=== PATIENT | male | born 1955 | race Caucasian/White ===

== ENCOUNTER 2018-03-20 22:56 | Emergency (ER) | payer BC ==
[2018-03-21 00:06] LABS: Granulocyte Absolute (ANC) 3.38 (1.4-6.9); Hemoglobin 12.8 gm/dl (12.5-18.0); Mean Cell Volume 90.5 fl (78-100); Mean Corpuscular Hemoglobin 29.7 pg (26-32); Mean Corpuscular Hgb Concent. 32.8 g/dl (32-36); Mean Platelet Volume 11.8 fl (6-9.5); Platelet Count 207 K/mm3 (150-450); Red Blood Count 4.31 M/mm3 (4.1-5.6); Red Cell Distribution Width 15.1 % (11.5-14.0); White Blood Count 6.2 K/mm3 (4.0-10.5)
[2018-03-21 00:31] LABS: INR 0.99 (0.8-3.0)
[2018-03-21 00:35] LABS: ALBUMIN 3.8 g/dL (3.5-5.0); ALKALINE PHOSPHATASE 55 U/L (38-126); ANION GAP 13.6 MEQ/L (5-15); BLOOD UREA NITROGEN 26 mg/dL (9-20); CHLORIDE 106 mmol/L (98-107); CK-Creatinine Phosphokinase 58 U/L (55-170); Calcium 9.3 mg/dL (8.4-10.2); Carbon Dioxide 25 mmol/L (22-30); Creatinine 1 0.87 mg/dL (0.66-1.25); Glucose 156 mg/dL (74-106); Potassium 3.5 mmol/L (3.5-5.1); SGOT/AST 25 U/L (17-59); SGPT/ALT 42 U/L (0-50); SODIUM 141 mmol/L (137-145); Total Protein 6.3 g/dL (6.3-8.2)
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
[2018-03-21 00:44] LABS: NT PRO BNP 62.7 pg/mL (0-900)
[2018-03-21] MEDS ORDERED: NORCO 5/325 MG PO ONE (00:51)
[2018-03-21] MEDS ORDERED: ULTRAM 50 MG PO ONE (00:53)
[2018-03-21] MEDS ORDERED: ULTRAM 50 MG ONE (00:59)
[2018-03-21] MEDS ORDERED: NORCO 5/325 MG ONE (01:00)
[2018-03-21 01:02] LABS: BAND 2 % (0.0-2.0); Eosinophil 7 % (0.00-3.0); Lymphocytes 36 % (24-44); Monocyte 11 % (0.0-12.0); Neutrophils 44 % (36.-66.); Platelet Estimate NORMAL (NORMAL); Total Cells Counted 100
[2018-03-21 01:04] LABS: ANISOCYTOSIS 1+; Poikilocytosis 1+
[2018-03-21 02:11] VITALS: BP 118/73
[2018-03-21] MEDS ORDERED: Hydromorphone 1 mg/ml Ampule IM ONE (02:48)
[2018-03-21 02:51] VITALS: O2SAT 97
[2018-03-21] MEDS ORDERED: DILAUDID 2 MG INJECTION ONE (02:53)
[2018-03-21] MEDS ORDERED: BENADRYL 25 MG CAPSULE PO ONE (03:21)
[2018-03-21] MEDS ORDERED: BENADRYL 25 MG CAPSULE ONE (03:27)
[2018-03-21 04:11] VITALS: PULSE 64
--- NOTE | 2018-03-21 08:48 | XRAY ---
Indication: Chest pain. Comparison: September 27, 2016. Portable chest again demonstrates chronic interstitial lung markings and scattered calcified granulomas. No focal infiltrate, consolidation, or large effusion. Heart is not enlarged for AP portable technique. Bony thorax intact again with mild osteopenia and degenerative changes. Impression: Stable nonacute chest with chronic features.
== END 2018-03-21 04:05 | disposition home or self-care (01) ==
LOC: ED 22:56
DX: R07.9 Chest pain, unspecified (principal); V89.2XXS Person injured in unspecified motor-vehicle accident, traffic, sequela; Z86.711 Personal history of pulmonary embolism; Z79.01 Long term (current) use of anticoagulants; Z79.899 Other long term (current) drug therapy; E11.9 Type 2 diabetes mellitus without complications; Z79.4 Long term (current) use of insulin
CPT/HCPCS: 36415; 71045; 80053; 82550; 83880; 84484; 85025; 85610; 93005; 96372; 99284; J1170; A9270-GY

== ENCOUNTER 2018-05-07 19:27 | Observation (INO) | payer BC ==
[2018-05-07] MEDS ORDERED: Sodium Chloride 0.9% 1000 ML 1,000 ML IV STA (20:41)
--- NOTE | 2018-05-07 20:41 | ERPHSYRPT ---
- History of Present Illness Time Seen by Provider: 05/07/18 20:37 Source: patient, family Exam Limitations: no limitations Patient Subjective Stated Complaint: pt is alert and oriented. pt is brought in by in wheelchair. pt states that he began having body aches, fever, sore throat since 05/01/18. pt states that he began having diarrhea and dry heaving on 05/02/18. pt no longer has a fever but is still having diarrhea and dry heaves. he has taken imodium and tylenol PM last dose of both at 1700 today. pt states that he is diabetic but has not checked his sugar or given himself any insulin since 05/01/18. Accucheck is 209. pt bowel sounds present x4. mucous membranes are slightly dry. skin is supple and wall. Triage Nursing Assessment: see above Physician History: The patient is a 62-year-old male with his complaining of frequent liquid diarrhea for one week with accompanying fever. He has muscle aches. He says he is very weak and has a headache as well. He denies abdominal pain. He called his primary medical doctor and is unable to be seen until Friday. He states he "can't go through another night like this". Every time he tries to eat or drink anything he has a lot of yellow brown diarrhea. He states he has lost 20 pounds in one week. Others in his family have also been ill but not as bad. His past medical history is significant for CAD, [place], cardiac stents, diverticulitis, hypertension, diabetes, COPD, pancreatitis, and high cholesterol. Timing/Duration: week(s) (1), gradual onset, worse Severity: severe Modifying Factors: Improves With: nothing Associated Symptoms: nausea, headaches, loss of appetite, weakness, No vomiting , No abdominal pain Allergies/Adverse Reactions: codeine Adverse Reaction (Mild, Verified 03/20/18 23:44) hyperactive/nausea morphine Adverse Reaction (Mild, Verified 03/20/18 23:44) Itching hydromorphone HCl [From Dilaudid] Adverse Reaction (Verified 09/27/16 06:01) ITCH found it caused his nose to itch and was then given with benadryl without problems Home Medications: Albuterol Common Canister [Proventil Common Canister] 2 puff IH UD PRN [History] Aspirin [Aspirin EC] 81 mg PO HS 04/17/13 [History] Atorvastatin Calcium [Lipitor] 40 mg PO HS 04/17/13 [History] Clopidogrel Bisulfate 75 mg [PLAVIX 75 MG Tablet] 75 mg PO DAILY 04/17/13 [History] Fenofibrate,Micronized 145 mg* [Tricor 145 MG] 145 mg PO HS 04/17/13 [History ] Magnesium Oxide 400 mg [Mag-Ox 400] 500 mg PO HS 04/17/13 [History] Metoprolol Succinate 25 mg Xl* [Toprol-Xl 25MG Tablets] 12.5 mg PO BID [History] Multivitamin [Men's Multi-Vitamin] 1 each PO DAILY 04/17/13 [History] Fexofenadine HCl [Saba] 180 mg PO DAILY 12/31/14 [History] Fluticasone Propionate [Flonase NASAL] 16 gm NS DAILY 12/31/14 [History] Fluticasone/Salmeterol [Advair 250-50 Diskus] 1 each IH DAILY 12/31/14 [History] Lisinopril/Hydrochlorothiazide [Lisinopril-Hctz 20-12.5 mg Tab] 1 each PO BID [History] Glipizide 5 mg [Glucotrol 5 MG] 5 mg PO BID 10/12/15 [History] Insulin Detemir [Levemir] 50 unit SQ DAILY 10/12/15 [History] Metformin HCl 500 mg [Glucophage 500 MG] 500 mg PO BID 10/12/15 [History] Vitamin E 400 Units [Vitamin E 400 UNIT SOFTGEL] 400 unit PO DAILY [History] PANTOPRAZOLE 40 mg Tablet [Protonix 40MG Tablet] 40 mg PO BID 09/27/16 [ History] Nitroglycerin 0.4 mg Tablet [Nitrostat 0.4 MG Tablet] 0.4 mg SL UD [History] Alprazolam 1 mg [Xanax 1 mg] 03/20/18 [History] Meloxicam 15 mg [Meloxicam 15 MG] 15 mg DAILY 03/20/18 [History] [place]-3 Fatty Acids/Fish Oil [Fish Oil 1,000 mg Capsule] 1 ea DAILY 03/20/18 [ History] Hx Tetanus, Diphtheria Vaccination/Date Given: No Hx Influenza Vaccination/Date Given: Yes Hx Pneumococcal Vaccination/Date Given: Yes (at least 5 years ago) Immunizations Up to Date: Yes - Review of Systems Constitutional: Fever, Weakness, Weight Loss Eyes: No Symptoms Ears, Nose, & Throat: No Symptoms Respiratory: No Cough, No Dyspnea Cardiac: No Chest Pain, No Edema, No Syncope Abdominal/Gastrointestinal: Nausea, Diarrhea, No Abdominal Pain, No Vomiting Genitourinary Symptoms: Other (decreased urine output.) Musculoskeletal: Myalgias Skin: No Rash Neurological: Headache Psychological: No Symptoms Endocrine: No Symptoms Hematologic/Lymphatic: No Symptoms Immunological/Allergic: No Symptoms All Other Systems: Reviewed and Negative - Past Medical History Pertinent Past Medical History: Yes Neurological History: Other ENT History: No Pertinent History Cardiac History: Aneurysm, Angina, Coronary Artery Disease, High Cholesterol, Hypertension, Myocardial Infarction ([place]) Respiratory History: Asthma, Pulmonary Embolism, Sleep Apnea Endocrine Medical History: Diabetes Type II Musculoskeletal History: Arthritis, Osteoarthritis, Other GI Medical History: Diverticulitis, GERD, Hemorrhoids, Pancreatitis, Polyps History: No Pertinent History Psycho-Social History: Anxiety Male Reproductive Disorders: No Pertinent History Other Medical History: cluster headaches, bursitis - Past Surgical History Past Surgical History: Yes Neuro Surgical History: No Pertinent History Cardiac: Cardiac Catheterization, Cardiac Stent Respiratory: No Pertinent History Gastrointestinal: No Pertinent History Genitourinary: No Pertinent History Musculoskeletal: Orthopedic Surgery Male Surgical History: Vasectomy Other Surgical History: fatty tumor removed from chest and back, surgery lower back disc surgery, sinus surgery - Social History Smoking Status: Current every day smoker How long have you smoked: occasional Exposure to second hand smoke: No Drug Use: none Patient Lives Alone: No - Nursing Vital Signs Nursing Vital Signs: Initial Vital Signs Temperature 98.6 F 05/07/18 19:28 Pulse Rate 86 05/07/18 19:28 Respiratory Rate 20 05/07/18 19:28 Blood Pressure 108/82 05/07/18 19:28 O2 Sat by Pulse Oximetry 96 08/02/18 19:28 Pain Scale Pain Intensity 3 - Physical Exam General Appearance: moderate distress Eye Exam: PERRL/EOMI, eyes nml inspection Ears, Nose, Throat Exam: normal ENT inspection, TMs normal, pharynx normal, moist mucous membranes Neck Exam: normal inspection, non-tender, supple, full range of motion Respiratory Exam: normal breath sounds, lungs clear, No respiratory distress Cardiovascular Exam: regular rate/rhythm, normal heart sounds, normal peripheral pulses Gastrointestinal/Abdomen Exam: soft, normal bowel sounds, No tenderness, No mass Rectal Exam: not done Back Exam: normal inspection, normal range of motion, No CVA tenderness, No vertebral tenderness Extremity Exam: normal inspection, normal range of motion, pelvis stable Neurologic Exam: alert, oriented x 3, cooperative, normal mood/affect, nml cerebellar function, nml station & gait, sensation nml, No motor deficits Skin Exam: normal color, warm, dry, No rash Lymphatic Exam: No adenopathy SpO2 Interpretation: normal SpO2: 94 Oxygen Delivery: Room Air - Course EKG Interpreted by Me: RATE, Sinus Rhythm, Left [place] Deviation, NORMAL INTERVALS , Right Bundle Branch Block, NORMAL ST-T - CT Exams Abdomen/Pelvis CT Interpretation: Discussed w/radiologist (per Dr Li), Tele-radiologist Report, diverticulitis (possible ascending colon), Other (colitis in cecum and ascending colon, appenidix at upper level of normal. no abcess.) Ordered Tests: Active Orders 24 hr Category Date Time Status ACCUCHECK [Accucheck] STAT Care 05/07/18 20:44 Active Clean Catch Urine Specimen STAT Care 05/07/18 20:41 Active EKG-ER Only STAT Care 05/07/18 20:41 Active IV Insertion STAT Care 05/07/18 20:41 Active ABDOMEN AND PELVIS W/0 CONTRAS [CT] Stat Exams 05/07/18 21:46 Taken BLOOD CULTURE Stat Lab 05/07/18 23:11 Ordered CBC W DIFF Stat Lab 05/07/18 21:08 Completed CMP Stat Lab 05/07/18 21:08 Completed LIPASE Stat Lab 05/07/18 21:08 Completed Lactic Acid Stat Lab 05/07/18 21:00 Completed Manual Differential NC Stat Lab 05/07/18 21:08 Completed TROPONIN Q3H Lab 05/07/18 21:08 Completed TROPONIN Q3H Lab 05/07/18 23:45 Ordered TROPONIN Q3H Lab 05/08/18 02:45 Ordered TROPONIN Q3H Lab 05/08/18 05:45 Ordered TROPONIN Q3H Lab 05/08/18 08:45 Ordered UA W/RFX UR CULTURE Stat Lab 05/07/18 20:42 Uncollected Medication Summary Generic Name Dose Route Start Last Admin Trade Name Soy PRN Reason Stop Dose Admin Potassium Chloride 20 meq in 100 mls @ 50 mls/hr 05/07/18 23:10 Potassium Chloride 20 Meq In Water 100ml IV 05/08/18 01:09 STAT ONE Ceftriaxone Sodium/Dextrose 1 g in 50 mls @ 100 mls/hr 05/07/18 23:11 Rocephin 1 Gm-D5w 50 Ml Bag IV 05/07/18 23:40 STAT STA Discontinued Medications Generic Name Dose Route Start Last Admin Trade Name Kelvinq PRN Reason Stop Dose Admin Sodium Chloride 1,000 mls @ 999 mls/hr 05/07/18 20:41 Sodium Chloride 0.9% 1000 Ml IV 05/07/18 21:41 .Q1H1M STA Potassium Chloride 40 meq 05/07/18 23:09 Klor Con 10 Meq PO 05/07/18 23:10 STAT ONE Lab/Rad Data: Laboratory Result Diagrams 05/07/18 21:08 05/07/18 21:08 Laboratory Results 05/07/18 05/07/18 05/07/18 Range/Units 21:08 21:08 21:08 WBC 8.5 (4.0-10.5) K/mm3 RBC 4.87 (4.1-5.6) M/mm3 Hgb 14.3 (12.5-18.0) gm/dl Hct 41.4 L (42-50) % MCV 85.0 (78-100) fl MCH 29.4 (26-32) pg MCHC 34.5 (32-36) g/dl RDW 15.6 H (11.5-14.0) % Plt Count 262 (150-450) K/mm3 MPV 11.6 H (6-9.5) fl Absolute Granulocytes 5.00 (1.4-6.9) Segmented Neutrophils 35 L (36.-66.) % Band Neutrophils 18 H (0.0-2.0) % Lymphocytes (Manual) 26 (24-44) % Monocytes (Manual) 12 (0.0-12.0) % Eosinophils (Manual) 2 (0.00-3.0) % Metamyelocytes 5 % Myelocytes 1 % Atypical Lymphocytes 1 % Toxic Granulation 2+ Dohle Bodies 2+ Platelet Estimate NORMAL (NORMAL) RBC Morphology NORMAL Sodium 132 L (137-145) mmol/L Potassium 2.8 L* (3.5-5.1) mmol/L Chloride 93 L (98-107) mmol/L Carbon Dioxide 26 (22-30) mmol/L Anion Gap 15.8 H (5-15) MEQ/L BUN 23 H (9-20) mg/dL Creatinine 0.87 (0.66-1.25) mg/dL Estimated GFR > 60.0 ML/MIN Glucose 156 H (74-106) mg/dL Lactic Acid (0.4-2.0) Calcium 9.0 (8.4-10.2) mg/dL Total Bilirubin 0.40 (0.2-1.3) mg/dL AST 42 (17-59) U/L ALT 56 H (0-50) U/L Alkaline Phosphatase 60 (38-126) U/L Troponin I < 0.012 (0.000-0.034) ng/mL Serum Total Protein 6.8 (6.3-8.2) g/dL Albumin 3.9 (3.5-5.0) g/dL Lipase 24 (23-300) U/L 05/07/18 Range/Units 21:00 WBC (4.0-10.5) K/mm3 RBC (4.1-5.6) M/mm3 Hgb (12.5-18.0) gm/dl Hct (42-50) % MCV (78-100) fl MCH (26-32) pg MCHC (32-36) g/dl RDW (11.5-14.0) % Plt Count (150-450) K/mm3 MPV (6-9.5) fl Absolute Granulocytes (1.4-6.9) Segmented Neutrophils (36.-66.) % Band Neutrophils (0.0-2.0) % Lymphocytes (Manual) (24-44) % Monocytes (Manual) (0.0-12.0) % Eosinophils (Manual) (0.00-3.0) % Metamyelocytes % Myelocytes % Atypical Lymphocytes % Toxic Granulation Dohle Bodies Platelet Estimate (NORMAL) RBC Morphology Sodium (137-145) mmol/L Potassium (3.5-5.1) mmol/L Chloride (98-107) mmol/L Carbon Dioxide (22-30) mmol/L Anion Gap (5-15) MEQ/L BUN (9-20) mg/dL Creatinine (0.66-1.25) mg/dL Estimated GFR ML/MIN Glucose (74-106) mg/dL Lactic Acid 1.8 (0.4-2.0) Calcium (8.4-10.2) mg/dL Total Bilirubin (0.2-1.3) mg/dL AST (17-59) U/L ALT (0-50) U/L Alkaline Phosphatase (38-126) U/L Troponin I (0.000-0.034) ng/mL Serum Total Protein (6.3-8.2) g/dL Albumin (3.5-5.0) g/dL Lipase (23-300) U/L - Progress Progress: unchanged Discussed with : Luis Will see patient in: hospital (observation) Counseled pt/family regarding: lab results, diagnosis, rad results - Departure Time of Disposition: 23:37 Departure Disposition: Observation (per Dr Smith) Clinical Impression: Diarrhea, Hypokalemia, Colitis Condition: Stable Critical Care Time: No Referrals: VIVEK SMITH MD [Primary Care Provider] -
[2018-05-07 21:11] LABS: Hematocrit 41.4 % (42-50); Hemoglobin 14.3 gm/dl (12.5-18.0); Mean Corpuscular Hemoglobin 29.4 pg (26-32); Mean Corpuscular Hgb Concent. 34.5 g/dl (32-36); Mean Platelet Volume 11.6 fl (6-9.5); Platelet Count 262 K/mm3 (150-450); Red Blood Count 4.87 M/mm3 (4.1-5.6); Red Cell Distribution Width 15.6 % (11.5-14.0); White Blood Count 8.5 K/mm3 (4.0-10.5)
[2018-05-07 21:26] LABS: ALBUMIN 3.9 g/dL (3.5-5.0); ALKALINE PHOSPHATASE 60 U/L (38-126); ANION GAP 15.8 MEQ/L (5-15); BLOOD UREA NITROGEN 23 mg/dL (9-20); CHLORIDE 93 mmol/L (98-107); Carbon Dioxide 26 mmol/L (22-30); Creatinine 1 0.87 mg/dL (0.66-1.25); Glucose 156 mg/dL (74-106); LIPASE 24 U/L (23-300); SGOT/AST 42 U/L (17-59); SGPT/ALT 56 U/L (0-50); SODIUM 132 mmol/L (137-145); Total Protein 6.8 g/dL (6.3-8.2)
[2018-05-07 21:30] LABS: Potassium 2.8 mmol/L (3.5-5.1)
[2018-05-07 21:41] LABS: ATYPICAL LYMPHS 1 %; BAND 18 % (0.0-2.0); Eosinophil 2 % (0.00-3.0); Lymphocytes 26 % (24-44); Metamyelocyte 5 %; Monocyte 12 % (0.0-12.0); Myelocyte 1 %; Neutrophils 35 % (36.-66.); Total Cells Counted 100
[2018-05-07 21:42] LABS: Dohle Bodies 2+; Platelet Estimate NORMAL (NORMAL); Toxic Granulation 2+
[2018-05-07] MEDS ORDERED: Xylocaine-Mpf 2% 5 Ml Vial IJ ONE (23:00)
[2018-05-07] MEDS ORDERED: Klor Con 10 MEQ PO ONE ×3 (23:09→23:34)
[2018-05-07] MEDS ORDERED: POTASSIUM CHLORIDE 20 mEq IN WATER 100ML 20 MEQ/100 ML BAG IV ONE (23:10)
[2018-05-07] MEDS ORDERED: ROCEPHIN 1 Gm-D5w 50 ml Bag** 1 G/50 ML IVPB IV STA (23:11)
[2018-05-07] MEDS ORDERED: ROCEPHIN 1 Gm-D5w 50 ml Bag** 1 G/50 ML IVPB IV ONE (23:33)
[2018-05-07] MEDS ORDERED: Sodium Chloride 0.9% 1000 ML 2,000 ML ONE (23:33)
[2018-05-08 00:05] LABS: Appearance CLEAR (CLEAR); Bilirubin NEGATIVE (NEGATIVE); Blood NEGATIVE Ery/ul (0-5); Glucose NEGATIVE (NEGATIVE); Ketones NEGATIVE (NEGATIVE); Leukocyte Esterase NEGATIVE (NEGATIVE); Nitrite NEGATIVE (NEGATIVE); Protein,Urine Dip NEGATIVE (Negative); Urobilinogen NORMAL mg/dL (0-1)
[2018-05-08] MEDS ORDERED: POTASSIUM CHLORIDE 20 mEq IN WATER 100ML 100 ML IV ONE (00:23)
[2018-05-08] MEDS ORDERED: Zofran 4 MG/2 ML VIAL IV PRN (00:39)
[2018-05-08] MEDS ORDERED: Sodium Chloride 0.9% 1000 ML 1,000 ML IV SCH (00:39)
[2018-05-08] MEDS: FLAGYL 500 MG IVPB 500 MG/100 ML BAG IV SCH ×5 (01:16→23:56)
[2018-05-08] MEDS: TYLENOL 325 MG PO PRN ×4 (01:17→19:34)
[2018-05-08] MEDS ORDERED: PROVENTIL COMMON CANISTER IH PRN (01:27)
[2018-05-08 05:55] LABS: Hematocrit 37.4 % (42-50); Hemoglobin 12.6 gm/dl (12.5-18.0); Mean Cell Volume 85.8 fl (78-100); Mean Corpuscular Hemoglobin 28.9 pg (26-32); Mean Corpuscular Hgb Concent. 33.7 g/dl (32-36); Mean Platelet Volume 11.1 fl (6-9.5); Platelet Count 243 K/mm3 (150-450); Red Blood Count 4.36 M/mm3 (4.1-5.6); Red Cell Distribution Width 15.7 % (11.5-14.0); White Blood Count 8.3 K/mm3 (4.0-10.5)
[2018-05-08 06:40] LABS: ANION GAP 12.5 MEQ/L (5-15); BLOOD UREA NITROGEN 17 mg/dL (9-20); CHLORIDE 101 mmol/L (98-107); Calcium 8.3 mg/dL (8.4-10.2); Carbon Dioxide 25 mmol/L (22-30); Creatinine 1 0.77 mg/dL (0.66-1.25); Glucose 110 mg/dL (74-106); Potassium 3.3 mmol/L (3.5-5.1); SODIUM 135 mmol/L (137-145)
[2018-05-08] MEDS: Advair Hfa 115/21 Common canister IH SCH ×2 (06:56→19:05)
[2018-05-08 07:00] LABS: ATYPICAL LYMPHS 3 %; BAND 3 % (0.0-2.0); Eosinophil 2 % (0.00-3.0); Lymphocytes 24 % (24-44); Monocyte 13 % (0.0-12.0); Neutrophils 55 % (36.-66.); Platelet Estimate NORMAL (NORMAL); Total Cells Counted 100; Toxic Granulation 1+
[2018-05-08] MEDS ORDERED: NovoLOG Insulin SQ PRN (08:09)
[2018-05-08] MEDS: Flonase NASAL NS SCH (09:20)
[2018-05-08] MEDS: hydroDIURIL 25 MG PO SCH (09:22)
[2018-05-08] MEDS: PLAVIX 75 MG Tablet PO SCH (09:23)
[2018-05-08] MEDS: Protonix 40MG Tablet PO SCH ×2 (09:24→20:49)
[2018-05-08] MEDS: Toprol-Xl 25MG Tablets PO SCH ×2 (09:25→20:52)
[2018-05-08] MEDS: Zestril 20 MG PO SCH (09:25)
[2018-05-08] MEDS: Sodium Chloride 0.9% W/ 20 mEq KCl/LITER 1,000 ML IV SCH ×2 (09:28→19:33)
[2018-05-08] MEDS ORDERED: NON-FORMULARY ITEM (Lisinopril/Hydrochlorothiazide [Lisinopril-Hctz 20-12.5 Mg Tab] 1 EACH PO SCH (10:00)
--- NOTE | 2018-05-08 10:23 | XRAY ---
Exam: CT of the abdomen and pelvis without IV contrast from 05/07/2018. CTDI: 23.68 Comparison: CT of the abdomen and pelvis with IV contrast from 10/02/2016. Indication: 62-year-old male with flu-like symptoms for one week, headache, nausea, diarrhea, and muscle aches, no history of prior abdominal surgery. Technique: Non-IV contrast axial images were obtained through the abdomen and pelvis. Reconstructed coronal and sagittal images were created and reviewed. No oral contrast was given. Findings: On the AP and lateral CT panelboard assembler images, the patient is noted to be morbidly obese with a protuberant abdomen. At the lung bases, the transverse heart size appears within normal limits. I believe there is mild three-vessel coronary artery vascular calcification. Some small granulomatous calcifications are seen within the infrahilar projections. Minimal atelectasis/scarring is seen at the anterior left lung base. There are a few small scattered tiny calcified granulomas within the lung bases. A tiny strand of linear atelectasis or fibrosis is seen at the posterior medial right lung base. No posterior pleural fluid is seen. The liver reveals some tiny scattered calcified granulomas within it. There is diffuse decreased hepatic attenuation consistent with steatosis. Assessment of the solid organs is limited without IV contrast. No definite intrahepatic biliary duct distention is seen. The gallbladder is distended and reveals no dense calcifications within it. Prior minimal free fluid adjacent to the liver in the right paracolic gutter is no longer seen. Spleen reveals a few small calcified granulomas. It is not enlarged. No splenic mass is seen. The pancreas appears unremarkable on the current study which is markedly improved as compared to 10/02/2016 when findings consistent with acute pancreatitis were seen. The prior large pseudocyst within the lesser sac on 10/02/2016 is no longer seen. The adrenal glands appear normal bilaterally. The kidneys are unremarkable size and reveal no calculi, gross evidence of mass, or hydronephrosis. Atherosclerotic vascular calcification is seen within the distal abdominal aorta. In addition, there is a 3.6 cm in width by 3.1 cm in AP depth saccular distal abdominal aortic aneurysm just above the aortic bifurcation representing no significant change. There is no evidence of rupture. Some atherosclerotic vascular calcification is seen within the iliac arteries and common femoral arteries. No abnormal retroperitoneal lymphadenopathy is seen. There is no free intraperitoneal air. No ventral abdominal hernia is seen. There is minimal protrusion of intraperitoneal fat into the base of the umbilicus on sagittal image #47 representing no change. The appendix is seen within the right lower quadrant and appears unremarkable. However, there appears to be some mild inflammatory stranding about the cecum and proximal ascending colon as compared to the prior study. Consider focal colitis. Assessment of wall thickening is difficult without IV or oral contrast. Significant diverticula within this projection are not seen. The remainder of the colon reveals some scattered stool. I also note mild diverticulosis within the distal descending colon and proximal sigmoid colon without evidence diverticulitis. No bowel obstruction is seen. The urinary bladder appears unremarkable. The seminal vesicles and prostate gland reveal minimal central prostate gland calcification. No free intraperitoneal fluid is seen. Pelvic lymph nodes are not enlarged. The skeleton reveals no acute fracture or aggressive bone lesion. Moderate degenerative disc disease is seen at L5-S1 with interspace narrowing, vacuum disc phenomena, and moderate anterior and posterior vertebral endplate spurring. Some facet joint arthropathy is seen at both L4-L5 and L5-S1. Prominent lateral osteophytes are seen within lower thoracic spine and the upper lumbar spine on the right. There is some subtle subarticular sclerosis along the upper anterior aspect of the right femoral head, best seen on the coronal images. This is unchanged from 10/02/2016 and 80 remote study from 04/26/2013. The possibility of very early osteonecrosis is not completely excluded. However, the hip joint spaces appear well-maintained bilaterally. Impression: 1. There is some mild inflammatory stranding and hazy pericolonic inflammatory changes about the cecum and proximal ascending colon without significant diverticula. This does not appear to be related to the appendix, the latter which appears unremarkable. Consider focal colitis. 2. Prior findings of acute pancreatitis on 10/02/2016 have completely resolved. 3. 3.6 cm x 3.1 cm distal abdominal aortic aneurysm without rupture just above the distal aortic bifurcation. This is essentially unchanged from 10/02/2016. 4. Diffuse hepatic steatosis and evidence of old healed granulomatous disease are seen. These findings are unchanged. 5. Mild distal descending colon and proximal sigmoid colon diverticulosis without evidence of acute diverticulitis. 5. Questionable early osteonecrosis of the upper anterior margin of the right femoral head. However, these findings are unchanged from 10/02/2016 and 04/26/2013. The hip joint spaces remain adequately maintained.
[2018-05-08 12:19] LABS: 027 TOX PROD PRESUMPTIVE NEGATIVE (NEGATIVE); TOXIGENIC C. DIFF ORG NEGATIVE (NEGATIVE)
[2018-05-08] MEDS: Cyclobenzaprine 10 MG PO SCH (20:49)
[2018-05-08] MEDS: Lantus Insulin SQ SCH (20:52)
[2018-05-08] MEDS: ECOTRIN 81 MG PO SCH (20:52)
[2018-05-08] MEDS: XANAX 1 MG PO PRN (20:52)
[2018-05-08] MEDS: ROCEPHIN 1 Gm-D5w 50 ml Bag** 1 G/50 ML IVPB IV SCH (20:59)
[2018-05-08] MEDS ORDERED: BENADRYL 25 MG CAPSULE PO PRN (21:40)
[2018-05-08] MEDS ORDERED: MORPHINE SULFATE 4 MG INJ IV PRN (21:44)
[2018-05-09] MEDS: FLAGYL 500 MG IVPB 500 MG/100 ML BAG IV SCH ×4 (05:21→23:10)
[2018-05-09 05:52] LABS: Granulocyte Absolute (ANC) 4.26 (1.4-6.9); Hematocrit 34.4 % (42-50); Hemoglobin 11.4 gm/dl (12.5-18.0); Mean Cell Volume 88.2 fl (78-100); Mean Corpuscular Hemoglobin 29.2 pg (26-32); Mean Corpuscular Hgb Concent. 33.1 g/dl (32-36); Mean Platelet Volume 11.2 fl (6-9.5); Platelet Count 230 K/mm3 (150-450); White Blood Count 6.7 K/mm3 (4.0-10.5)
[2018-05-09 06:17] LABS: ALBUMIN 2.9 g/dL (3.5-5.0); ALKALINE PHOSPHATASE 45 U/L (38-126); ANION GAP 10.6 MEQ/L (5-15); BLOOD UREA NITROGEN 8 mg/dL (9-20); CHLORIDE 106 mmol/L (98-107); Calcium 8.4 mg/dL (8.4-10.2); Carbon Dioxide 24 mmol/L (22-30); Creatinine 1 0.75 mg/dL (0.66-1.25); Glucose 102 mg/dL (74-106); Potassium 3.4 mmol/L (3.5-5.1); SGOT/AST 36 U/L (17-59); SGPT/ALT 52 U/L (0-50); SODIUM 137 mmol/L (137-145); Total Protein 5.5 g/dL (6.3-8.2)
[2018-05-09] MEDS: Advair Hfa 115/21 Common canister IH SCH ×2 (07:32→19:23)
[2018-05-09] MEDS: Sodium Chloride 0.9% W/ 20 mEq KCl/LITER 1,000 ML IV SCH ×2 (07:43→18:04)
[2018-05-09 09:05] LABS: BAND 5 % (0.0-2.0); Eosinophil 2 % (0.00-3.0); Lymphocytes 22 % (24-44); Monocyte 8 % (0.0-12.0); Neutrophils 63 % (36.-66.); Total Cells Counted 100
[2018-05-09 09:06] LABS: Platelet Estimate NORMAL (NORMAL)
[2018-05-09] MEDS: Protonix 40MG Tablet PO SCH ×2 (10:05→21:16)
[2018-05-09] MEDS: PLAVIX 75 MG Tablet PO SCH (10:05)
[2018-05-09] MEDS: Zestril 20 MG PO SCH (10:05)
[2018-05-09] MEDS: hydroDIURIL 25 MG PO SCH (10:05)
[2018-05-09] MEDS: Toprol-Xl 25MG Tablets PO SCH ×2 (10:05→21:16)
[2018-05-09] MEDS: Flonase NASAL NS SCH (11:05)
--- NOTE | 2018-05-09 11:55 | PCM.NOTE ---
Date and Time: 05/09/18 1152 Subjective Assessment: Pt feeling better, had some RLQ pain last night which resolvd with 1 dose of IV morphine (stated he had some itching with morphine, resolved with benadryl, so benadryl given with morphine an dpt w/o complaint). Last diarrhea 11 pm last night. Ramonita CLD but would like more. - Review of Systems Constitutional: No Fever Abdominal/Gastrointestinal: Abdominal Pain Objective Exam General Appearance: no apparent distress, obese Neurologic Exam: alert, oriented x 3, cooperative Skin Exam: normal color, warm, dry, No rash Neck Exam: normal inspection Respiratory Exam: normal breath sounds, lungs clear, No crackles/rales, No rhonchi, No wheezing Cardiovascular Exam: regular rate/rhythm, normal heart sounds, No murmur Gastrointestinal/Abdomen Exam: soft, normal bowel sounds, tenderness (RLQ, mild) , No mass, No guarding, No rebound Extremity Exam: normal inspection, No pedal edema, No swelling OBJECTIVE DATA Vital Signs: Vital Signs - 24 hr Temp Pulse Resp BP Pulse Ox 05/09/18 07:32 67 18 94 L 05/09/18 07:24 98.2 F 68 20 125/75 95 05/09/18 07:11 95 05/09/18 04:03 98.3 F 67 18 117/68 93 L 05/09/18 00:14 97.8 F 71 20 109/64 98 05/08/18 20:30 98.3 F 67 20 117/70 96 05/08/18 19:32 75 16 95 05/08/18 16:00 97.8 F 73 22 101/59 94 L 05/08/18 12:00 98.8 F 75 22 127/72 96 Pain Assessment - Last Documented Pain Intensity 0 Pain Scale Used 0-10 Pain Scale Intake and Output: Intake & Output 05/06/18 05/07/18 05/08/18 05/09/18 11:59 11:59 11:59 11:59 Intake Total 940 6656 Balance 940 6656 Weight 134.9 kg 136.5 kg Lab Results: Accuchecks Date 05/08/18 Date 05/08/18 Time 22:00 Time 16:30 Accucheck Value: 105 Lab Results-Last 24 Hours 08/03/18 08/04/18 08/04/18 Range/Units 06:00 05:05 05:05 WBC 6.7 (4.0-10.5) K/mm3 RBC 3.90 L (4.1-5.6) M/mm3 Hgb 11.4 L (12.5-18.0) gm/dl Hct 34.4 L (42-50) % MCV 88.2 (78-100) fl MCH 29.2 (26-32) pg MCHC 33.1 (32-36) g/dl RDW 16.0 H (11.5-14.0) % Plt Count 230 (150-450) K/mm3 MPV 11.2 H (6-9.5) fl Absolute Granulocytes 4.26 (1.4-6.9) Segmented Neutrophils 63 (36.-66.) % Band Neutrophils 5 H (0.0-2.0) % Lymphocytes (Manual) 22 L (24-44) % Monocytes (Manual) 8 (0.0-12.0) % Eosinophils (Manual) 2 (0.00-3.0) % Platelet Estimate NORMAL (NORMAL) RBC Morphology NORMAL Sodium 137 (137-145) mmol/L Potassium 3.4 L (3.5-5.1) mmol/L Chloride 106 (98-107) mmol/L Carbon Dioxide 24 (22-30) mmol/L Anion Gap 10.6 (5-15) MEQ/L BUN 8 L (9-20) mg/dL Creatinine 0.75 (0.66-1.25) mg/dL Estimated GFR > 60.0 ML/MIN Glucose 102 (74-106) mg/dL Calcium 8.4 (8.4-10.2) mg/dL Magnesium 1.8 (1.6-2.3) mg/dL Total Bilirubin 0.30 (0.2-1.3) mg/dL AST 36 (17-59) U/L ALT 52 H (0-50) U/L Alkaline Phosphatase 45 (38-126) U/L Serum Total Protein 5.5 L (6.3-8.2) g/dL Albumin 2.9 L (3.5-5.0) g/dL Stl C. diff Tox B Gene NEGATIVE (NEGATIVE) C.difficile [id number] PRESUMPTIVE NEGATIVE (NEGATIVE) Radiology Exams: Radiology Procedures Category Date Time Status ABDOMEN AND PELVIS W/0 CONTRAS [CT] Stat Exams 05/07/18 21:46 Completed Multi-Disciplinary Progress Notes: Multi-Disciplinary Progress Notes 05/08/18 19:30 Respiratory Note by Nelida Goldberg PT STATES HE WILL NOT WEAR THE [facility] CPAP UNIT TONIGHT. PT STATES HIS WILL BRING HIS FROM HOME TOMORROW. [facility] CPAP PULLED FROM ROOM. Initialized on 05/08/18 19:30 - END OF NOTE Assessment/Plan (1) Colitis Current Visit: Yes Status: Acute Onset Date: ~05/08/18 Assessment & Plan: On IV rocephin and flagyl, day #3 - doing much better, so will continue current regimen. Discussed sending pt home but would like to advance his diet first and ensure he is not going to increase diarrhea with increased diet. Code(s): K52.9 - NONINFECTIVE GASTROENTERITIS AND COLITIS, UNSPECIFIED (2) Dehydration Current Visit: Yes Status: Resolved Assessment & Plan: On IV fluids Code(s): E86.0 - DEHYDRATION (3) Diarrhea Current Visit: Yes Status: Acute Onset Date: ~05/08/18 Assessment & Plan: much improved. Code(s): R19.7 - DIARRHEA, UNSPECIFIED
[2018-05-09 12:25] LABS: Source: Feces
[2018-05-09] MEDS: Lantus Insulin SQ SCH (21:14)
[2018-05-09] MEDS: ROCEPHIN 1 Gm-D5w 50 ml Bag** 1 G/50 ML IVPB IV SCH (21:14)
[2018-05-09] MEDS: ECOTRIN 81 MG PO SCH (21:16)
[2018-05-09] MEDS: Cyclobenzaprine 10 MG PO SCH (21:16)
[2018-05-09] MEDS: XANAX 1 MG PO PRN (21:19)
[2018-05-10] MEDS: Sodium Chloride 0.9% W/ 20 mEq KCl/LITER 1,000 ML IV SCH (05:20)
[2018-05-10] MEDS: FLAGYL 500 MG IVPB 500 MG/100 ML BAG IV SCH ×2 (05:20→11:36)
[2018-05-10 06:02] LABS: ANION GAP 10.2 MEQ/L (5-15); BLOOD UREA NITROGEN 9 mg/dL (9-20); CHLORIDE 109 mmol/L (98-107); Calcium 8.7 mg/dL (8.4-10.2); Carbon Dioxide 24 mmol/L (22-30); Creatinine 1 0.73 mg/dL (0.66-1.25); Glucose 111 mg/dL (74-106); Hematocrit 33.4 % (42-50); Hemoglobin 11.1 gm/dl (12.5-18.0); Mean Cell Volume 88.8 fl (78-100); Mean Corpuscular Hemoglobin 29.5 pg (26-32); Mean Corpuscular Hgb Concent. 33.2 g/dl (32-36); Mean Platelet Volume 11.3 fl (6-9.5); Platelet Count 259 K/mm3 (150-450); Potassium 3.7 mmol/L (3.5-5.1); Red Blood Count 3.76 M/mm3 (4.1-5.6); Red Cell Distribution Width 16.2 % (11.5-14.0); SODIUM 139 mmol/L (137-145); White Blood Count 6.9 K/mm3 (4.0-10.5)
[2018-05-10] MEDS: Advair Hfa 115/21 Common canister IH SCH (07:52)
[2018-05-10] MEDS: PLAVIX 75 MG Tablet PO SCH (09:06)
[2018-05-10] MEDS: Toprol-Xl 25MG Tablets PO SCH (09:06)
[2018-05-10] MEDS: hydroDIURIL 25 MG PO SCH (09:06)
[2018-05-10] MEDS: Protonix 40MG Tablet PO SCH (09:06)
[2018-05-10] MEDS: Zestril 20 MG PO SCH (09:07)
[2018-05-10] MEDS: Flonase NASAL NS SCH (09:10)
[2018-05-10] MEDS ORDERED: ENOXAPARIN SODIUM SQ SCH (10:00)
--- NOTE | 2018-05-10 10:28 | PCM.DS ---
Discharge Summary Date of Admission: 05/08/18 00:33 Admitting Physician: VIVEK DE LA FUENTE Primary Care Provider: VIVEK DE LA FUENTE Allergies Allergies codeine Adverse Reaction (Mild, Verified 03/20/18 23:44) hyperactive/nausea morphine Adverse Reaction (Mild, Verified 03/20/18 23:44) Itching hydromorphone HCl [From Dilaudid] Adverse Reaction (Verified 09/27/16 06:01) ITCH found it caused his nose to itch and was then given with benadryl without problems Hospital Summary - Hospital Course Hospital Course: Pt admitted by Dr. De La Fuente for colitis, was having diarrhea. Feeling better after the first day on flagyl and rocephin but was still having some loose stools. Now has not had any stools overnight, keren bland diet, and feeling no pain. Would like to d/c to home. Will send pt home on flagyl and cefdinir. F/ u with Dr. De La Fuente in 1 wk. - Vitals & Intake/Output Vital Signs: Vital Signs Temperature 97.7 F 05/10/18 07:55 Pulse Rate 66 05/10/18 07:55 Respiratory Rate 18 05/10/18 07:55 Blood Pressure 110/65 05/10/18 07:55 O2 Sat by Pulse Oximetry 96 05/10/18 07:55 Intake & Output: Intake & Output 05/07/18 05/08/18 05/09/18 05/10/18 11:59 11:59 11:59 11:59 Intake Total 940 6656 4565 Output Total 700 Balance 940 6656 3865 Weight 134.9 kg 136.5 kg 137.5 kg - Lab Result Diagrams: 05/10/18 05:05 05/10/18 05:05 Lab Results-Last 24 Hrs: Accuchecks Accucheck Value: 129 Accucheck Value: 111 Accucheck Value: 116 Lab Results-Last 24 Hours 05/10/18 05/10/18 Range/Units 05:05 05:05 WBC 6.9 (4.0-10.5) K/mm3 RBC 3.76 L (4.1-5.6) M/mm3 Hgb 11.1 L (12.5-18.0) gm/dl Hct 33.4 L (42-50) % MCV 88.8 (78-100) fl MCH 29.5 (26-32) pg MCHC 33.2 (32-36) g/dl RDW 16.2 H (11.5-14.0) % Plt Count 259 (150-450) K/mm3 MPV 11.3 H (6-9.5) fl Sodium 139 (137-145) mmol/L Potassium 3.7 (3.5-5.1) mmol/L Chloride 109 H (98-107) mmol/L Carbon Dioxide 24 (22-30) mmol/L Anion Gap 10.2 (5-15) MEQ/L BUN 9 (9-20) mg/dL Creatinine 0.73 (0.66-1.25) mg/dL Estimated GFR > 60.0 ML/MIN Glucose 111 H (74-106) mg/dL Calcium 8.7 (8.4-10.2) mg/dL Micro Results-Entire Visit: Microbiology 05/07/18 23:45 Blood Culture - Preliminary Blood NO GROWTH TO DATE 05/07/18 20:40 Blood Culture - Preliminary Blood NO GROWTH TO DATE Accuchecks Accucheck Value: 129 Accucheck Value: 111 Accucheck Value: 116 - Procedures and Test Procedures and Tests throughout Hospitalization: Therapy Orders & Screens 05/08/18 01:27 Respiratory MDI PRN Comment: ALB MDI PRN Diagnosis: colitis 05/08/18 01:29 BiPap/CPAP ROUTINE Comment: Diagnosis: colitis Respiratory Therapy Assessment DAILY Comment: Diagnosis: colitis 05/08/18 01:46 RT Screen per Nursing Assess ONCE Comment: Protocol Order Physician Instructions: Greater than 3 points order RT Admission Screen Reason For Exam: Triggered on Admission Diagnosis: colitis Diagnosis: colitis Pneumonia: No Home O2: No Asthma: No CHF: No Home CPAP/BIPAP: Yes Home Nebs/MDI: Yes Total Points: 10 Smoking Cessation Education ONCE Comment: Diagnosis: colitis Smoking Status: Current every day smoker How long have you smoked: 50 years Have you smoked in the past 12 months: Yes Approximately how many cigarettes per day: 1 pack Do you dip or chew tobacco: No If,Former Smoker,when did you quit: 200805/08/18 07:00 Respiratory MDI BID Comment: PRABHAKAR 115/21 BID Diagnosis: colitis 05/09/18 19:51 BiPap/CPAP ROUTINE Comment: CPAP 10 WITH AUTOPAP FROM HOME Diagnosis: colitis Discharge Exam General Appearance: no apparent distress, alert, obese Neurologic Exam: oriented x 3, cooperative Skin Exam: normal color, warm, dry, No rash Ears, Nose, Throat Exam: moist mucous membranes Neck Exam: normal inspection Respiratory Exam: normal breath sounds, lungs clear, No crackles/rales, No rhonchi, No wheezing Cardiovascular Exam: regular rate/rhythm, normal heart sounds, No murmur Gastrointestinal/Abdomen Exam: soft, normal bowel sounds, other (obese abd), No tenderness, No mass, No guarding, No rebound Extremity Exam: normal inspection, No pedal edema, No swelling Final Diagnosis/Problem List - Final Discharge Diagnosis/Problem (1) Colitis Current Visit: Yes Status: Acute Onset Date: ~05/08/18 Assessment & Plan: Doing great - home today on flagyl and cefdinir as he responded so well to flagyl and rocephin here. F/u with Dr. De La Fuente. (2) Dehydration Current Visit: Yes Status: Resolved (3) Diarrhea Current Visit: Yes Status: Resolved Onset Date: ~05/08/18 (4) Diabetes Current Visit: Yes Status: Chronic Assessment & Plan: Continue home meds. Of note, hold metformin for at least 48h after any IV dye. - Discharge Disposition: Home, Self-Care Condition: Good Prescriptions: New Cefdinir 300 mg PO BID #6 capsule Metronidazole 500 mg [Flagyl 500 MG] 500 mg PO QID #40 tablet Continue Magnesium Oxide 400 mg [Mag-Ox 400] 500 mg PO DAILY Multivitamin [Men's Multi-Vitamin] 1 each PO DAILY Aspirin [Aspirin EC] 81 mg PO HS Metoprolol Succinate 25 mg Xl* [Toprol-Xl 25MG Tablets] 25 mg PO BID Fenofibrate,Micronized 145 mg* [Tricor 145 MG] 145 mg PO HS Clopidogrel Bisulfate 75 mg [PLAVIX 75 MG Tablet] 75 mg PO DAILY Atorvastatin Calcium [Lipitor] 40 mg PO HS Fluticasone Propionate [Flonase NASAL] 16 gm NS DAILY Fluticasone/Salmeterol [Advair 250-50 Diskus] 1 each IH DAILY Lisinopril/Hydrochlorothiazide [Lisinopril-Hctz 20-12.5 mg Tab] 1 each PO BID Fexofenadine HCl [Saba] 180 mg PO HS Metformin HCl 500 mg [Glucophage 500 MG] 500 mg PO BID Glipizide 5 mg [Glucotrol 5 MG] 5 mg PO BID Insulin Detemir [Levemir] 50 unit SQ HS Vitamin E 400 Units [Vitamin E 400 UNIT SOFTGEL] 400 unit PO DAILY PANTOPRAZOLE 40 mg Tablet [Protonix 40MG Tablet] 40 mg PO BID Nitroglycerin 0.4 mg Tablet [Nitrostat 0.4 MG Tablet] 0.4 mg SL UD [place]-3 Fatty Acids/Fish Oil [Fish Oil 1,000 mg Capsule] 1 ea DAILY Meloxicam 15 mg [Meloxicam 15 MG] 15 mg DAILY Alprazolam 1 mg [Xanax 1 mg] 1 mg PO TID PRN PRN PRN Reason: Anxiety Cyclobenzaprine HCl 10 mg [Cyclobenzaprine 10 MG] 10 mg PO HS Additional Instructions: Hold metformin for 48 hours after receiving IV dye (contrast). Return or call VAL for any fever over 100.4, increase in abdominal pain, vomiting, or blood in the stool. Follow up with: VIVEK DE LA FUENTE MD [Primary Care Provider] - 1 Week
[2018-05-10 12:34] VITALS: BP 100/58; PULSE 73; O2SAT 99
--- NOTE | 2018-05-11 09:00 | HP ---
CHIEF COMPLAINT: Diarrhea. HISTORY OF PRESENT ILLNESS: The patient is a 62 year-old male who reported to the emergency room complaining of severe diarrhea for one week with accompanying fever. He complained of myalgia and inability to tolerate a regular diet or fluid intake without severe profuse watery diarrhea. He began feeling very weak and having headache. He has no abdominal pain. He has had some nausea but no vomiting. PAST MEDICAL HISTORY: Coronary artery disease, myocardial infarction, cardiac stents, hypertension, diabetes mellitus type 2, chronic obstructive pulmonary disease, pancreatitis with pseudocyst as a complication, hyperlipidemia, diverticulosis. PAST SURGICAL HISTORY: He has had cardiac catheterization with stenting, ERCP with pseudocyst drainage, low back surgery, sinus surgery. HOME MEDICATIONS: He uses Proventil inhaler as needed, aspirin 81 mg daily, Lipitor 40 mg daily, Plavix 75 mg, Tricor 145 mg daily, magnesium oxide 400 mg at bedtime, metoprolol succinate 25 mg half tablet twice daily, multivitamin, Saba 180 mg daily, Flonase nasal spray, Advair 250/50 mg 1 puff inhaled twice daily, lisinopril/hydrochlorothiazide 20/12.5 mg p.o. b.i.d., Glipizide 5 mg b.i.d., Levemir 50 units daily, Metformin 500 mg b.i.d., vitamin E 400 units daily, Protonix 40 mg b.i.d., Nitro as needed, Xanax 1 mg daily as needed, meloxicam 15 mg daily, [place] fish oil daily. ALLERGIES: CODEINE, MORPHINE, DILAUDID. SOCIAL HISTORY: He is a long time smoker. No drug or alcohol use. FAMILY HISTORY: Noncontributory. REVIEW OF SYSTEMS: GENERAL: Positive for fevers, chills or weakness. HEENT: No sore throat or difficulty swallowing. RESPIRATORY: No cough. No shortness of breath. CVS: No chest pain. No peripheral edema. GI: Positive for nausea. No vomiting. Diffuse watery diarrhea, No blood in the stools. No abdominal pain. : No dysuria or hesitancy or frequency. SKIN: No rash. No lesions. NEUROLOGIC: No numbness, tingling, weakness or paresthesia. The remainder of systems reviewed on presentation was found to be negative. PHYSICAL EXAMINATION: Temperature 97.8F, pulse 73, blood pressure 127/72, respiratory rate 22. Oxygen saturation 96% on room air. GENERAL: He is alert, morbidly obese male in no apparent distress. HEENT: Head - Normocephalic, atraumatic. Eyes - PERRLA. EOMI. NECK: Supple without lymphadenopathy. CVS: Regular rate and rhythm. No murmur. No gallop. No rub. RESPIRATORY: Clear to auscultation bilaterally. ABDOMEN: Obese, nondistended. There is minimal tenderness in the left lower quadrant, slightly hyperactive bowel sounds. SKIN: No rashes. No lesions. EXTREMITIES: No clubbing. No cyanosis. No edema. LAB DATA AND TESTS: White blood cell count 8,300, hemoglobin 12.6, PLT count 234,000. Sodium 135, potassium 3.3, chloride 101, carbon dioxide 25, BUN 17, creatinine 0.77. Stool for Clostridium difficile negative. CT scan showed changes consistent with colitis. ASSESSMENT: Asad Forte is a 62 year-old who presents with acute colitis with dehydration and hypokalemia. His potassium deficit has been replaced and he has been rehydrated since admission. He was started on Rocephin and Flagyl which we will continue. Otherwise cover his blood sugars with sliding scale insulin and keep him on a clear liquid diet at this time.
== END 2018-05-10 13:05 | disposition home or self-care (01) ==
LOC: ED 19:27 → MED SURG 05-08 00:33
PROVIDERS: ADMIT Family Medicine; ATTEND Family Medicine
DX: K52.9 Noninfective gastroenteritis and colitis, unspecified (principal); E86.0 Dehydration; R19.7 Diarrhea, unspecified; E11.9 Type 2 diabetes mellitus without complications; Z79.4 Long term (current) use of insulin; J44.1 Chronic obstructive pulmonary disease with (acute) exacerbation; I10 Essential (primary) hypertension; E78.5 Hyperlipidemia, unspecified; I25.10 Atherosclerotic heart disease of native coronary artery without angina pectoris; K85.90 Acute pancreatitis without necrosis or infection, unspecified; Z79.899 Other long term (current) drug therapy; I25.2 Old myocardial infarction; Z72.0 Tobacco use
CPT/HCPCS: 36415; 74176; 76942; 80048; 80053; 81002; 82962; 83036; 83605; 83690; 83735; 84484; 85025; 85027; 87040; 87045; 87046; 87177; 87209; 87335; 87493; 93005; 93268; 94640; 94660; 94760; 96360; 96365; 96374; 99285; J0696; J1650; J2270; J3480; A9270-GY; G0378

== ENCOUNTER 2020-07-16 12:10 | Emergency (ER) | payer BC ==
[2020-07-16] MEDS ORDERED: XYLOCAINE 1%/Epi 1:100000 MDV 20 ML ONE (12:39)
[2020-07-16 13:04] VITALS: BP 129/80; PULSE 78; O2SAT 98
--- NOTE | 2020-07-16 13:04 | ERPHSYRPT ---
- History of Present Illness Time Seen by Provider: 07/16/20 12:39 Source: patient Exam Limitations: no limitations Physician History: 64 years old diabetic male presented in the ER with chief complaint of swelling/abscess on the lower abdominal wall for the last 2 days. Patient reported started as a small bump and is gradually increasing in size with a central area about the size of a quarter and redness around associated with moderate intensity sharp pain which is aggravated with palpation and better with applying ice. No fever or chills reported. No history of MRSA. Timing/Duration: day(s) (2), gradual onset, worse Quality: painful Severity: moderate Location: torso Possible Causes: no cause identified Associated Symptoms: rash Allergies/Adverse Reactions: codeine Adverse Reaction (Mild, Verified 07/16/20 13:01) hyperactive/nausea morphine Adverse Reaction (Mild, Verified 07/16/20 13:01) Itching hydromorphone HCl [From Dilaudid] Adverse Reaction (Verified 07/16/20 13:01) ITCH found it caused his nose to itch and was then given with benadryl without problems Home Medications: Aspirin [Aspirin EC] 81 mg PO HS 04/17/13 [History] Atorvastatin Calcium [Lipitor] 40 mg PO HS 04/17/13 [History] Clopidogrel Bisulfate 75 mg [PLAVIX 75 MG Tablet] 75 mg PO DAILY 04/17/13 [History] Fenofibrate,Micronized 145 mg* [Tricor 145 MG] 145 mg PO HS 04/17/13 [History] Magnesium Oxide 400 mg [Mag-Ox 400] 500 mg PO DAILY 04/17/13 [History] Metoprolol Succinate 25 mg Xl* [Toprol-Xl 25MG Tablets] 25 mg PO BID 04/17/13 [History] Multivitamin [Men's Multi-Vitamin] 1 each PO DAILY 04/17/13 [History] Fexofenadine HCl [Saba] 180 mg PO HS 12/31/14 [History] Fluticasone Propionate [Flonase NASAL] 16 gm NS DAILY 12/31/14 [History] Fluticasone/Salmeterol [Advair 250-50 Diskus] 1 each IH DAILY 12/31/14 [History] Lisinopril/Hydrochlorothiazide [Lisinopril-Hctz 20-12.5 mg Tab] 1 each PO BID 12/31/14 [History] Glipizide 5 mg [Glucotrol 5 MG] 5 mg PO BID 10/12/15 [History] Insulin Detemir [Levemir] 50 unit SQ HS 10/12/15 [History] Metformin HCl 500 mg [Glucophage 500 MG] 500 mg PO BID 10/12/15 [History] Vitamin E 400 Units [Vitamin E 400 UNIT SOFTGEL] 400 unit PO DAILY 10/12/15 [History] PANTOPRAZOLE 40 mg Tablet [Protonix 40MG Tablet] 40 mg PO BID 09/27/16 [History] Nitroglycerin 0.4 mg Tablet [Nitrostat 0.4 MG Tablet] 0.4 mg SL UD 10/02/16 [History] Alprazolam 1 mg [Xanax 1 mg] 1 mg PO TID PRN PRN 03/20/18 [History] Meloxicam 15 mg [Meloxicam 15 MG] 15 mg DAILY 03/20/18 [History] [place]-3 Fatty Acids/Fish Oil [Fish Oil 1,000 mg Capsule] 1 ea DAILY 03/20/18 [History] Cyclobenzaprine HCl 10 mg [Cyclobenzaprine 10 MG] 10 mg PO HS 05/08/18 [History] Hx Tetanus, Diphtheria Vaccination/Date Given: No Hx Influenza Vaccination/Date Given: Yes Hx Pneumococcal Vaccination/Date Given: Yes (at least 5 years ago) - Review of Systems Constitutional: No Symptoms Eyes: No Symptoms Ears, Nose, & Throat: No Symptoms Respiratory: No Symptoms Cardiac: No Symptoms Genitourinary Symptoms: No Symptoms Musculoskeletal: No Symptoms Skin: Cellulitis, Induration, Rash, Skin Lesions Neurological: No Symptoms Psychological: No Symptoms - Past Medical History Pertinent Past Medical History: Yes Neurological History: Other ENT History: No Pertinent History Cardiac History: Aneurysm, Angina, Coronary Artery Disease, High Cholesterol, Hypertension, Myocardial Infarction ([place]) Respiratory History: Asthma, Pulmonary Embolism, Sleep Apnea Endocrine Medical History: Diabetes Type II Musculoskeletal History: Arthritis, Osteoarthritis, Other GI Medical History: Diverticulitis, GERD, Hemorrhoids, Pancreatitis, Polyps History: No Pertinent History Psycho-Social History: Anxiety Male Reproductive Disorders: No Pertinent History Other Medical History: cluster headaches, bursitis - Past Surgical History Past Surgical History: Yes Neuro Surgical History: No Pertinent History Cardiac: Cardiac Catheterization, Cardiac Stent Respiratory: No Pertinent History Gastrointestinal: No Pertinent History Genitourinary: No Pertinent History Musculoskeletal: Orthopedic Surgery Male Surgical History: Vasectomy Other Surgical History: fatty tumor removed from chest and back, surgery lower back disc surgery, sinus surgery, stent x3 - Social History Smoking Status: Current every day smoker How long have you smoked: 50 years Exposure to second hand smoke: Yes Drug Use: none Patient Lives Alone: No - Nursing Vital Signs Nursing Vital Signs: Initial Vital Signs Temperature 98.0 F 07/16/20 13:01 Pulse Rate 78 07/16/20 13:01 Respiratory Rate 18 07/16/20 13:01 Blood Pressure 129/80 07/16/20 13:01 O2 Sat by Pulse Oximetry 98 07/16/20 13:01 Pain Scale Pain Intensity 5 - Physical Exam General Appearance: no apparent distress Eye Exam: eyes nml inspection Ears, Nose, Throat Exam: pharynx normal Neck Exam: normal inspection, supple, full range of motion Respiratory Exam: normal breath sounds, lungs clear Cardiovascular Exam: regular rate/rhythm, normal heart sounds Gastrointestinal/Abdomen Exam: soft, normal bowel sounds, other (Left lower abdominal wall 4 cm x 4 cm area of erythema/redness with central bump with positive fluctuation, warm and tender to touch.), No tenderness Extremity Exam: normal inspection Neurologic Exam: alert, oriented x 3 Skin Exam: normal color SpO2 Interpretation: normal O2 Delivery: Room Air Procedures - Incision and Drainage Timeout: Performed Site: Left lower abdominal wall Anesthesia: 1% lidocaine w/epi cc's of anesthesia: 4 Blade Size: 11 I & D Procedure: hibiclens prep, gauze wick placed Results: moderate amount pus Progress: Patient tolerated procedure very well. Ordered Tests: Medication Summary Discontinued Medications Generic Name Dose Route Start Last Admin Trade Name Freq PRN Reason Stop Dose Admin Lidocaine/Epinephrine Confirm 07/16/20 12:39 Xylocaine 1%/Epi [id number] Mdv 20 Ml Administered 07/16/20 12:40 Dose 1 ml .ROUTE .Easy Pairings-MED ONE - Progress Progress: improved Progress Note: 07/16/20 13:02 Incision and drainages done. Started on clindamycin. Outpatient follow-up recommended. Discussed signs symptoms of worsening needing return to ER which he seems understanding. Counseled pt/family regarding: diagnosis, need for follow-up - Departure Departure Disposition: Home Clinical Impression: Abdominal wall abscess Condition: Stable Critical Care Time: No Referrals: VIVEK DE LA FUENTE MD [Primary Care Provider] - Follow Up with PCP/3 days Instructions: MRSA (DC), Wound Infection Additional Instructions: Keep it clean. Daily dressing changes. Follow-up with primary care for reevaluation. Take Tylenol as needed. Continue with antibiotics. Return to ER for increasing pain swelling redness discharge/fever or chills. Prescriptions: Clindamycin HCl 150 mg [Cleocin 150 mg Capsule] 2 cap PO QID #56 capsule
== END 2020-07-16 13:14 | disposition home or self-care (01) ==
LOC: ED 12:10
DX: L02.211 Cutaneous abscess of abdominal wall (principal); I10 Essential (primary) hypertension; E11.9 Type 2 diabetes mellitus without complications; Z79.899 Other long term (current) drug therapy; G47.30 Sleep apnea, unspecified; I26.99 Other pulmonary embolism without acute cor pulmonale; Z87.891 Personal history of nicotine dependence
CPT/HCPCS: 99283

== ENCOUNTER 2020-10-12 20:50 | Emergency (ER) | payer BC ==
--- NOTE | 2020-10-12 21:04 | ERPHSYRPT ---
- History of Present Illness Time Seen by Provider: 10/12/20 20:59 Source: patient Exam Limitations: no limitations Physician History: This is a 64-year-old white male who is a patient of Dr. De La Fuente and has a history of hypertension and is diabetic and presents with watering of the left eye that began last evening. This morning, he noticed that he is having some numbness around his left eye and left cheek. It began approximately 9 or 10:00 this morning. Symptoms have persisted and therefore he came into the emergency department for evaluation. Patient denies head trauma, he denies history of strokes, he denies recent flulike symptoms. Timing/Duration: today Severity: moderate Associated Symptoms: denies symptoms, No shortness of breath, No chest pain, No headaches, No syncope, No seizure Allergies/Adverse Reactions: codeine Adverse Reaction (Mild, Verified 10/12/20 21:12) hyperactive/nausea morphine Adverse Reaction (Mild, Verified 10/12/20 21:12) Itching hydromorphone HCl [From Dilaudid] Adverse Reaction (Verified 10/12/20 21:12) ITCH found it caused his nose to itch and was then given with benadryl without problems Home Medications: Aspirin [Aspirin EC] 81 mg PO HS 04/17/13 [History] Atorvastatin Calcium [Lipitor] 40 mg PO HS 04/17/13 [History] Clopidogrel Bisulfate 75 mg [PLAVIX 75 MG Tablet] 75 mg PO DAILY 04/17/13 [History] Fenofibrate,Micronized 145 mg* [Tricor 145 MG] 145 mg PO HS 04/17/13 [H istory] Magnesium Oxide 400 mg [Mag-Ox 400] 250 mg PO DAILY 04/17/13 [History] Metoprolol Succinate 25 mg Xl* [Toprol-Xl 25MG Tablets] 25 mg PO BID 04/17/13 [History] Multivitamin [Men's Multi-Vitamin] 1 each PO DAILY 04/17/13 [History] Fexofenadine HCl [Saba] 180 mg PO HS 12/31/14 [History] Lisinopril/Hydrochlorothiazide [Lisinopril-Hctz 20-12.5 mg Tab] 1 each PO BID 12/31/14 [History] Glipizide 5 mg [Glucotrol 5 MG] 5 mg PO BID 10/12/15 [History] Metformin HCl 500 mg [Glucophage 500 MG] 500 mg PO BID 10/12/15 [History] Vitamin E 400 Units [Vitamin E 400 UNIT SOFTGEL] 400 unit PO DAILY 10/12/15 [History] PANTOPRAZOLE 40 mg Tablet [Protonix 40MG Tablet] 40 mg PO BID 09/27/16 [History] Nitroglycerin 0.4 mg Tablet [Nitrostat 0.4 MG Tablet] 0.4 mg SL UD 10/02/16 [History] Alprazolam 1 mg [Xanax 1 mg] 1 mg PO TID PRN PRN 03/20/18 [History] [place]-3 Fatty Acids/Fish Oil [Fish Oil 1,000 mg Capsule] 1 ea PO DAILY 03/20/18 [History] Cyclobenzaprine HCl 10 mg [Cyclobenzaprine 10 MG] 10 mg PO HS 05/08/18 [History] Albuterol Sulfate [Proair Hfa] 1 puff IH DAILY PRN PRN 10/12/20 [History] Ergocalciferol (Vitamin D2) [Vitamin D2] 1 tab PO WEEKLY 10/12/20 [History] Fluticasone Propion/Salmeterol [[place] 250-50 Inhub] 2 puff IH BID 10/12/20 [ History] Insulin Glargine,Hum.rec.anlog [Lantus Solostar] 40 units SQ DAILY 10/12/20 [History] Hx Tetanus, Diphtheria Vaccination/Date Given: No Hx Influenza Vaccination/Date Given: Yes Hx Pneumococcal Vaccination/Date Given: Yes (at least 5 years ago) Travel Risk - International Travel Have you traveled outside of the country in past 3 weeks: No - Coronavirus Screening Are you exhibiting any of the following symptoms?: No Close contact with a COVID-19 positive Pt in past 14-21 Days: No - Review of Systems Constitutional: No Symptoms Eyes: Discharge (Clear left eye) Ears, Nose, & Throat: No Symptoms Respiratory: No Symptoms Cardiac: No Symptoms Abdominal/Gastrointestinal: No Symptoms Genitourinary Symptoms: No Symptoms Musculoskeletal: No Symptoms Skin: No Symptoms Neurological: Parasthesia (Orbital area and left cheek) Psychological: No Symptoms Endocrine: No Symptoms Hematologic/Lymphatic: No Symptoms Immunological/Allergic: No Symptoms All Other Systems: Reviewed and Negative - Past Medical History Pertinent Past Medical History: Yes Neurological History: Other ENT History: No Pertinent History Cardiac History: Aneurysm, Angina, Coronary Artery Disease, High Cholesterol, Hypertension, Myocardial Infarction ([place]) Respiratory History: Asthma, Pulmonary Embolism, Sleep Apnea Endocrine Medical History: Diabetes Type II Musculoskeletal History: Arthritis, Osteoarthritis, Other GI Medical History: Diverticulitis, GERD, Hemorrhoids, Pancreatitis, Polyps History: No Pertinent History Psycho-Social History: Anxiety Male Reproductive Disorders: No Pertinent History Other Medical History: cluster headaches, bursitis - Past Surgical History Past Surgical History: Yes Neuro Surgical History: No Pertinent History Cardiac: Cardiac Catheterization, Cardiac Stent Respiratory: No Pertinent History Gastrointestinal: No Pertinent History Genitourinary: No Pertinent History Musculoskeletal: Orthopedic Surgery Male Surgical History: Vasectomy Other Surgical History: fatty tumor removed from chest and back, surgery lower back disc surgery, sinus surgery, stent x3 - Social History Smoking Status: Current every day smoker How long have you smoked: 50 years Exposure to second hand smoke: Yes Drug Use: none Patient Lives Alone: No - Nursing Vital Signs Nursing Vital Signs: Initial Vital Signs Temperature 98.1 F 10/12/20 20:55 Pulse Rate 90 10/12/20 20:55 Respiratory Rate 20 10/12/20 20:55 Blood Pressure 222/193 10/12/20 20:55 O2 Sat by Pulse Oximetry 96 10/12/20 20:55 Pain Scale Pain Intensity 7 - Physical Exam General Appearance: no apparent distress, alert, anxiety Eye Exam: PERRL/EOMI, other (Left eye is tearing. There is delayed eyelid closure on the left side compared to the right.) Ears, Nose, Throat Exam: normal ENT inspection, moist mucous membranes Neck Exam: normal inspection, non-tender, supple, full range of motion Respiratory Exam: normal breath sounds, lungs clear, airway intact, No chest t enderness, No respiratory distress Cardiovascular Exam: regular rate/rhythm, normal heart sounds, normal peripheral pulses Gastrointestinal/Abdomen Exam: soft, normal bowel sounds, No tenderness Rectal Exam: not done Back Exam: normal inspection, normal range of motion, No CVA tenderness, No vertebral tenderness Extremity Exam: normal inspection, normal range of motion, pelvis stable Neurologic Exam: alert, oriented x 3, cooperative, senior consumer insights consultant II-XII nml as tested, normal mood/affect, nml cerebellar function, nml station & gait, sensation nml, facial droop (Very mild left side), No slurred speech, No aphasia, No dysarthria Skin Exam: normal color, warm, dry Lymphatic Exam: No adenopathy SpO2 Interpretation: normal SpO2: 96 O2 Delivery: Room Air - Course Nursing assessment & vital signs reviewed: Yes EKG Interpreted by Me: RATE (89), Sinus Rhythm, NORMAL AXIS, NORMAL INTERVALS, NORMAL QRS, Right Bundle Branch Block, Other (Comparison EKG dated 05/08/2018 shows persistent right bundle branch block. There is no acute ischemic changes on today's EKG or on the EKG dated 05/08/2018) Ordered Tests: Active Orders 24 hr Category Date Time Status EKG-ER Only STAT Care 10/12/20 21:07 Active IV Insertion STAT Care 10/12/20 21:07 Active Pulse Oximetry (ED) STAT Care 10/12/20 21:07 Active HEAD WITHOUT CONTRAST [CT] Stat Exams 10/12/20 21:08 Taken CBC W DIFF Stat Lab 10/12/20 21:30 Completed CMP Stat Lab 10/12/20 21:30 Completed POCT GLUCOSE Stat Lab 10/12/20 21:01 Completed Lab/Rad Data: Laboratory Result Diagrams 10/12/20 21:30 10/12/20 21:30 Laboratory Results 10/12/20 10/12/20 10/12/20 Range/Units 21:30 21:30 21:01 WBC 5.5 (4.0-10.5) K/mm3 RBC 5.15 (4.1-5.6) M/mm3 Hgb 15.0 (12.5-18.0) gm/dl Hct 45.3 (42-50) % MCV 88.0 (78-100) fl MCH 29.1 (26-32) pg MCHC 33.1 (32-36) g/dl RDW 15.1 H (11.5-14.0) % Plt Count 215 (150-450) K/mm3 MPV 12.0 H (7.5-11.0) fl Gran % 56.9 (36.0-66.0) % Eos # (Auto) 0.13 (0-0.5) Absolute Lymphs (auto) 1.62 (1.0-4.6) Absolute Monos (auto) 0.58 (0.0-1.3) Lymphocytes % 29.5 (24.0-44.0) % Monocytes % 10.5 (0.0-12.0) % Eosinophils % 2.4 (0.00-5.0) % Basophils % 0.7 (0.0-0.4) % Absolute Granulocytes 3.13 (1.4-6.9) Basophils # 0.04 (0-0.4) Sodium 131 L (137-145) mmol/L Potassium 4.0 (3.5-5.1) mmol/L Chloride 96 L (98-107) mmol/L Carbon Dioxide 23 (22-30) mmol/L Anion Gap 15.7 H (5-15) MEQ/L BUN 14 (9-20) mg/dL Creatinine 0.71 (0.66-1.25) mg/dL Estimated GFR > 60.0 ML/MIN Glucose 449 H (74-106) mg/dL POC Glucometer 449 H (74 to 106) mg/dL Calcium 9.9 (8.4-10.2) mg/dL Total Bilirubin 0.40 (0.2-1.3) mg/dL AST 58 (17-59) U/L ALT 75 H (0-50) U/L Alkaline Phosphatase 67 (38-126) U/L Serum Total Protein 7.5 (6.3-8.2) g/dL Albumin 4.4 (3.5-5.0) g/dL - Progress Progress: improved Progress Note: 10/12/20 22:26 Medical decision making: This patient has a history of diabetes and hypertension. Patient blood pressure has been fine during his stay here. The CAT scan of his head without contrast reveals no acute intracranial abnormality. 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 Patient's blood sugar is 449. I will hold off on any steroid use at this time. I will give him 10 units of intravenous regular insulin. I will give him an eye patch and instruct him to use lubricating eyedrops. He is to follow-up with his primary care physician tomorrow by phone to make a follow-up appointment. Counseled pt/family regarding: lab results, diagnosis, need for follow-up, rad results - Departure Departure Disposition: Home Clinical Impression: Hyperglycemia, Toney's palsy Condition: Stable Critical Care Time: No Referrals: VIVEK DE LA FUENTE MD [Primary Care Provider] - Additional Instructions: Use lubricating eyedrops liberally to the left eye. Wear the eye patch at all times. Follow-up with your primary care doctor's office tomorrow to make arrangements for follow-up appointment and reexamination.
[2020-10-12 21:35] LABS: Absolute Neutrophil Ct (ANC) 3.13 (1.4-6.9); BASOPHIL % 0.7 % (0.0-0.4); Basophil (Absolute #) 0.04 (0-0.4); Eosinophil % 2.4 % (0.00-5.0); Eosinophil (Absolute #) 0.13 (0-0.5); Hematocrit 45.3 % (42-50); Lymphocyte (Absolute #) 1.62 (1.0-4.6); Lymphocytes % 29.5 % (24.0-44.0); Mean Corpuscular Hemoglobin 29.1 pg (26-32); Mean Corpuscular Hgb Concent. 33.1 g/dl (32-36); Monocyte (Absolute #) 0.58 (0.0-1.3); Monocytes % 10.5 % (0.0-12.0); Neutrophil % 56.9 % (36.0-66.0); Platelet Count 215 K/mm3 (150-450); Red Blood Count 5.15 M/mm3 (4.1-5.6); Red Cell Distribution Width 15.1 % (11.5-14.0); White Blood Count 5.5 K/mm3 (4.0-10.5)
[2020-10-12 22:05] LABS: ALBUMIN 4.4 g/dL (3.5-5.0); ALKALINE PHOSPHATASE 67 U/L (38-126); ANION GAP 15.7 MEQ/L (5-15); BLOOD UREA NITROGEN 14 mg/dL (9-20); CHLORIDE 96 mmol/L (98-107); Calcium 9.9 mg/dL (8.4-10.2); Carbon Dioxide 23 mmol/L (22-30); Creatinine 1 0.71 mg/dL (0.66-1.25); EST GLOMERULAR FILTRATION RATE > 60.0 ML/MIN; Glucose 449 mg/dL (74-106); SGOT/AST 58 U/L (17-59); SGPT/ALT 75 U/L (0-50); SODIUM 131 mmol/L (137-145); Total Protein 7.5 g/dL (6.3-8.2)
[2020-10-12] MEDS ORDERED: HUMULIN R IV ONE (22:25)
[2020-10-12] MEDS ORDERED: HUMULIN R ONE (22:32)
[2020-10-12] MEDS ORDERED: TYLENOL 325 MG PO STA (22:37)
[2020-10-12] MEDS ORDERED: TYLENOL 325 MG ONE (22:39)
[2020-10-12 22:42] VITALS: BP 114/81
[2020-10-12 23:19] VITALS: PULSE 85; O2SAT 95
--- NOTE | 2020-10-13 08:58 | XRAY ---
Indication: Left periorbital/cheek numbness. Multiple contiguous axial images obtained through the head without contrast. Comparison: December 31, 2014. Age-appropriate global atrophy and minimal periventricular degenerative micro-ischemia bilaterally. No acute intracranial hemorrhage, abnormal extra-axial fluid collection, or mass effect. Fourth ventricle is midline without hydrocephalus. Shaw-white matter differentiation preserved. Bony calvarium intact. Mild mucosal thickening right frontal/right ethmoid sinuses. Remaining visualized paranasal sinuses and mastoid air cells are clear. Impression: Atrophy and degenerative micro-ischemia within normal limits for patient's age. Incidental paranasal sinus disease. No acute intracranial abnormalities.
== END 2020-10-12 23:15 | disposition home or self-care (01) ==
LOC: ED 20:50
DX: E11.65 Type 2 diabetes mellitus with hyperglycemia (principal); G51.0 Bell's palsy; I10 Essential (primary) hypertension; Z79.899 Other long term (current) drug therapy; Z79.84 Long term (current) use of oral hypoglycemic drugs; Z79.4 Long term (current) use of insulin; I25.10 Atherosclerotic heart disease of native coronary artery without angina pectoris; E78.00 Pure hypercholesterolemia, unspecified; I25.2 Old myocardial infarction; Z86.711 Personal history of pulmonary embolism
CPT/HCPCS: 36000; 36415; 70450; 80053; 82947; 85025; 93005; 94760; 96374; 99284; J1815; A9270-GY

== ENCOUNTER 2024-12-20 12:59 | Observation (INO) | payer BC ==
[2024-12-20 13:38] LABS: Hematocrit 26.3 % (40.1-51.0); Hemoglobin 8.6 g/dL (13.7-17.5); Mean Cell Volume 88.6 fL (79.0-92.2); Mean Corpuscular Hgb Concent. 32.7 g/dL (32.3-36.5); Mean Platelet Volume 10.2 fL (9.4-12.4); Platelet Count 124 x10^3/uL (163-337); Red Blood Count 2.97 x10^6/uL (4.63-6.08); Red Cell Distribution Width 21.7 % (11.6-14.4); White Blood Count 7.7 x10^3/uL (4.23-9.07)
--- NOTE | 2024-12-20 14:00 | ERPHSYRPT ---
- History of Present Illness Time Seen by Provider: 12/20/24 13:25 Source: patient Exam Limitations: no limitations Patient Subjective Stated Complaint: pt here for sob for a couple days, no fever, occ cough, he was dx with afib a week ago , and is was unalbe to start on a blood thinner because hgb was low, unsure of were blood is coming from Triage Nursing Assessment: pt alert, resp labored, co cough, dry, chest clear, skin warm.dry.pale. no edema noted Physician History: Patient is a 69-year-old male with a history of cardiac stents, known AAA measuring 4.7 cm smokes cigarettes most of his life quit about a month ago currently with A-fib not anticoagulated secondary to low hemoglobin presents to our ED for evaluation of acute shortness of breath. No chest pain. Patient is on Plavix and aspirin. Shortness of breath is worse with exertion. Symptoms improved with rest. No trauma no fever. Symptoms are progressive. Symptoms are moderate in intensity. Patient's primary care doctor is Dr. Smith. at bedside reports that Dr. Smith is managing his A-fib. Patient voices no other complaints or concerns at this time. Portions of this note were created with voice recognition technology. There may be grammatical, spelling, punctuation or sound alike errors Timing/Duration: today Severity: moderate Modifying Factors: Improves With: nothing Associated Symptoms: denies symptoms Allergies/Adverse Reactions: codeine Adverse Reaction (Mild, Verified 12/20/24 13:01) hyperactive/nausea morphine Adverse Reaction (Mild, Verified 12/20/24 13:01) Itching hydromorphone HCl [From Dilaudid] Adverse Reaction (Verified 12/20/24 13:01) ITCH found it caused his nose to itch and was then given with benadryl without problems Home Medications: Aspirin [Aspirin EC] 81 mg PO HS 04/17/13 [History] Atorvastatin Calcium [Lipitor] 40 mg PO HS 04/17/13 [History] Clopidogrel Bisulfate [PLAVIX Tablet] 75 mg PO DAILY 04/17/13 [History] Fenofibrate,Micronized 145 mg* [Tricor 145 MG] 145 mg PO HS 04/17/13 [History] Magnesium Oxide 400 mg [Mag-Ox 400] 250 mg PO DAILY 04/17/13 [History] Metoprolol Succinate 25 mg Xl* [Toprol-Xl 25MG Tablets] 25 mg PO BID 04/17/13 [History] Multivitamin [Men's Multi-Vitamin] 1 each PO DAILY 04/17/13 [History] Fexofenadine HCl [Saba] 180 mg PO HS 12/31/14 [History] Lisinopril/Hydrochlorothiazide [Lisinopril-Hctz 20-12.5 mg Tab] 1 each PO BID 12/31/14 [History] Glipizide 5 mg [Glucotrol 5 MG] 5 mg PO BID 10/12/15 [History] Metformin HCl 500 mg [Glucophage 500 MG] 500 mg PO BID 10/12/15 [History] Vitamin E 400 Units [Vitamin E 400 UNIT SOFTGEL] 400 unit PO DAILY 10/12/15 [History] PANTOPRAZOLE 40 mg Tablet [Protonix 40MG Tablet] 40 mg PO BID 09/27/16 [History] Nitroglycerin 0.4 mg Tablet [Nitrostat 0.4 MG Tablet] 0.4 mg SL UD 10/02/16 [History] ALPRAZolam 1 MG [Xanax 1 mg] 1 mg PO TID PRN PRN 03/20/18 [History] Mathews-3 Fatty Acids/Fish Oil [Fish Oil 1,000 mg Capsule] 1 ea PO DAILY 03/20/18 [History] Cyclobenzaprine HCl 10 mg [Cyclobenzaprine 10 MG] 10 mg PO HS 05/08/18 [History] Albuterol Sulfate [Proair Hfa] 1 puff IH DAILY PRN PRN 10/12/20 [History] Ergocalciferol (Vitamin D2) [Vitamin D2] 1 tab PO WEEKLY 10/12/20 [History] Fluticasone Propion/Salmeterol [Wixela 250-50 Inhub] 2 puff IH BID 10/12/20 [History] Insulin Glargine,Hum.rec.anlog [Lantus Solostar] 60 units SQ BID 10/12/20 [History] Ascorbic Acid [Vitamin C] 1,000 mg PO DAILY 08/27/21 [History] Cider Vinegar [Apple Cider Vinegar] 0 mg PO DAILY 08/27/21 [History] Cyanocobalamin 500 Mcg [Vitamin B-12 500 MCG] 1,000 mcg PO DAILY 08/27/21 [History] Topiramate [Topamax] 25 mg PO TID PRN 08/27/21 [History] Ubidecarenone [Co Q10] 200 mg PO DAILY 08/27/21 [History] Zinc 50 mg PO DAILY 08/27/21 [History] Hx Tetanus, Diphtheria Vaccination/Date Given: No Hx Influenza Vaccination/Date Given: Yes Hx Pneumococcal Vaccination/Date Given: Yes (at least 5 years ago) Immunizations Up to Date: Yes Travel Risk - International Travel Have you traveled outside of the country in past 3 weeks: No - Emerging Infectious Disease Are you exhibiting symptoms associated with any current EIDs: Yes Symptoms: Shortness of Breath - Review of Systems Constitutional: No Symptoms, No Fever, No Chills Eyes: No Symptoms Ears, Nose, & Throat: No Symptoms Respiratory: No Symptoms, No Cough, No Dyspnea Cardiac: No Symptoms, No Chest Pain, No Edema, No Syncope Abdominal/Gastrointestinal: No Symptoms, No Abdominal Pain, No Nausea, No Vomiting, No Diarrhea Genitourinary Symptoms: No Symptoms, No Dysuria Musculoskeletal: No Symptoms, No Back Pain, No Neck Pain Skin: No Symptoms, No Rash Neurological: No Dizziness, No Focal Weakness, No Sensory Changes Psychological: No Symptoms Endocrine: No Symptoms Hematologic/Lymphatic: No Symptoms Immunological/Allergic: No Symptoms All Other Systems: Reviewed and Negative - Past Medical History Pertinent Past Medical History: Yes Neurological History: Other ENT History: No Pertinent History Cardiac History: Aneurysm, Angina, Arrhythmia, Coronary Artery Disease, High Cholesterol, Hypertension, Myocardial Infarction (SD) Respiratory History: Asthma, Pulmonary Embolism, Sleep Apnea Endocrine Medical History: Diabetes Type II Musculoskeletal History: Arthritis, Osteoarthritis, Other GI Medical History: Diverticulitis, GERD, Hemorrhoids, Pancreatitis, Polyps History: No Pertinent History Psycho-Social History: Anxiety Male Reproductive Disorders: No Pertinent History Other Medical History: cluster headaches, bursitis, new onset a fib 12/28 - Past Surgical History Past Surgical History: Yes Neuro Surgical History: No Pertinent History Cardiac: Cardiac Catheterization, Cardiac Stent Respiratory: No Pertinent History Gastrointestinal: No Pertinent History Genitourinary: No Pertinent History Musculoskeletal: Orthopedic Surgery Male Surgical History: Vasectomy Other Surgical History: fatty tumor removed from chest and back, surgery lower back disc surgery, sinus surgery, stent x3 - Social History Smoking Status: Current every day smoker How long have you smoked: 50 years Exposure to second hand smoke: Yes Drug Use: none - Social Determinants of Health Will the patient participate in the screening: Declined to provide - Nursing Vital Signs Nursing Vital Signs: Initial Vital Signs Temperature 97.0 F 12/20/24 13:12 Pulse Rate 96 H 12/20/24 13:12 Respiratory Rate 20 12/20/24 13:12 Blood Pressure 132/68 12/20/24 13:12 O2 Sat by Pulse Oximetry 96 12/20/24 13:12 Pain Scale Pain Intensity 0 - Physical Exam General Appearance: no apparent distress, alert Eye Exam: PERRL/EOMI, eyes nml inspection Ears, Nose, Throat Exam: normal ENT inspection, pharynx normal, moist mucous membranes Neck Exam: normal inspection, non-tender, supple, full range of motion Respiratory Exam: normal breath sounds, lungs clear, airway intact, No respir atory distress Cardiovascular Exam: regular rate/rhythm, normal heart sounds, normal peripheral pulses Gastrointestinal/Abdomen Exam: soft, normal bowel sounds, No tenderness, No mass Back Exam: normal inspection, normal range of motion, No CVA tenderness, No vertebral tenderness Extremity Exam: normal inspection, normal range of motion, pelvis stable Neurologic Exam: alert, oriented x 3, cooperative, normal mood/affect, nml cerebellar function, nml station & gait, sensation nml, No motor deficits Skin Exam: normal color, warm, dry, No rash Lymphatic Exam: No adenopathy SpO2 Interpretation: normal SpO2: 96 O2 Delivery: Room Air - Course Nursing assessment & vital signs reviewed: Yes EKG Interpreted by Me: RATE (88), A-fib, NORMAL AXIS, NORMAL INTERVALS, Right Bundle Branch Block - CT Exams Abdomen/Pelvis CT Interpretation: Tele-radiologist Report (Enlarging AAA, sigmoid diverticulosis fatty liver) Ordered Tests: Active Orders 24 hr Category Date Time Status Computer Salesperson Retail STAT Care 12/20/24 13:15 Active EKG-ER Only STAT Care 12/20/24 13:14 Active IV Insertion STAT Care 12/20/24 13:14 Active Pulse Oximetry (ED) STAT Care 12/20/24 13:14 Active CHEST 1 VIEW (PORTABLE) Stat Exams 12/20/24 13:15 Completed CHEST WITH CONTRAST [CT] Stat Exams 12/20/24 14:00 Completed CTA ABDOMEN W AND/OR WO CONTRA [CT] Stat Exams 12/20/24 14:01 Completed BLOOD CULTURE Stat Lab 12/20/24 13:51 Received CBC W DIFF Stat Lab 12/20/24 13:20 Results CMP Stat Lab 12/20/24 13:20 Completed D-DIMER QUANTITATIVE Stat Lab 12/20/24 13:20 Completed Manual Differential NC Stat Lab 12/20/24 13:20 Results NT PRO BNPII Stat Lab 12/20/24 13:20 Completed Pathologist Review Stat Lab 12/20/24 13:20 Results TROPONIN Q4H Lab 12/20/24 13:20 Completed TROPONIN Q4H Lab 12/20/24 17:35 Completed TROPONIN Q4H Lab 12/20/24 21:15 Ordered UA W/RFX UR CULTURE Stat Lab 12/20/24 16:55 Completed Transfer Order Routine Transfer 12/20/24 Ordered Medication Summary Discontinued Medications Generic Name Dose Route Start Last Admin Trade Name Freq PRN Reason Stop Dose Admin Furosemide 40 mg 12/20/24 18:25 12/20/24 18:55 Furosemide 40 Mg/4 Ml Vial IV 12/20/24 18:26 40 mg STAT ONE Administration Furosemide Confirm 12/20/24 18:52 Furosemide 40 Mg/4 Ml Vial Administered 12/20/24 18:53 Dose 40 mg .ROUTE .STK-MED ONE Lab/Rad Data: Laboratory Result Diagrams 12/20/24 13:20 12/20/24 13:20 Laboratory Results 12/20/24 12/20/24 12/20/24 Range/Units 17:35 16:55 13:20 WBC (4.23-9.07) x10^3/uL RBC (4.63-6.08) x10^6/uL Hgb (13.7-17.5) g/dL Hct (40.1-51.0) % MCV (79.0-92.2) fL MCH (25.7-32.2) pg MCHC (32.3-36.5) g/dL RDW (11.6-14.4) % Plt Count (163-337) x10^3/uL MPV (9.4-12.4) fL Segmented Neutrophils (34.0-67.9) % Band Neutrophils (0.0-2.0) % Lymphocytes (Manual) (21.8-53.1) % Monocytes (Manual) (5.3-12.2) % Eosinophils (Manual) (0.8-7.0) % Nucleated RBCs % Hypochromia Platelet Estimate (NORMAL) RBC Morphology Anisocytosis Macrocytosis Rouleaux Smear Path Review D-Dimer < 0.19 (0.0-0.50) mg/L Sodium (135-145) mmol/L Potassium (3.5-5.1) mmol/L Chloride (98-107) mmol/L Carbon Dioxide (22-30) mmol/L Anion Gap (5-15) MEQ/L BUN (9-20) mg/dL Creatinine (0.66-1.25) mg/dL Estimated GFR ML/MIN Glucose (74-106) mg/dL Calcium (8.4-10.2) mg/dL Total Bilirubin (0.2-1.3) mg/dL AST (17-59) U/L ALT (0-50) U/L Alkaline Phosphatase (38-126) U/L Troponin I < 0.012 (0.000-0.033) ng/mL NT-Pro-B Natriuret Pep (<300) pg/mL Serum Total Protein (6.3-8.2) g/dL Albumin (3.5-5.0) g/dL Urine Color Yellow (Yellow) Urine Appearance Clear (Clear) Urine pH 7.5 (4.6-8.0) Ur Specific [place] 1.010 (1.005-1.030) Urine Protein Negative (Negative) Urine Glucose (UA) Negative (Negative) mg/dL Urine Ketones Negative (Negative) Urine Blood Negative (Negative) Urine Nitrite Negative (Negative) Urine Bilirubin Negative (Negative) Urine Urobilinogen 1.0 A (0.2) mg/dL Ur Leukocyte Esterase Negative (Negative) U Hyaline Cast (Auto) NONE SEEN (0-2) /LPF Urine Microscopic RBC 0-2 (0-5) /HPF Urine Microscopic WBC 0-2 (0-5) /HPF Ur Epithelial Cells None Seen (None Seen) /HPF Urine Bacteria None Seen (None Seen) /HPF Urine Culture Reflexed NO (NO) 12/20/24 12/20/24 12/20/24 Range/Units 13:20 13:20 13:20 WBC 7.7 (4.23-9.07) x10^3/uL RBC 2.97 L (4.63-6.08) x10^6/uL Hgb 8.6 L (13.7-17.5) g/dL Hct 26.3 L (40.1-51.0) % MCV 88.6 (79.0-92.2) fL MCH 29.0 (25.7-32.2) pg MCHC 32.7 (32.3-36.5) g/dL RDW 21.7 H (11.6-14.4) % Plt Count 124 L (163-337) x10^3/uL MPV 10.2 (9.4-12.4) fL Segmented Neutrophils 48 (34.0-67.9) % Band Neutrophils 1 (0.0-2.0) % Lymphocytes (Manual) 39 (21.8-53.1) % Monocytes (Manual) 7 (5.3-12.2) % Eosinophils (Manual) 5 (0.8-7.0) % Nucleated RBCs 3 % Hypochromia 1+ Platelet Estimate DECREASED (NORMAL) RBC Morphology ABNORMAL Anisocytosis 1+ Macrocytosis 1+ Rouleaux 3+ Smear Path Review Pending D-Dimer (0.0-0.50) mg/L Sodium 138 (135-145) mmol/L Potassium 3.9 (3.5-5.1) mmol/L Chloride 106 (98-107) mmol/L Carbon Dioxide 18 L (22-30) mmol/L Anion Gap 17.9 H (5-15) MEQ/L BUN 17 (9-20) mg/dL Creatinine 1.13 (0.66-1.25) mg/dL Estimated GFR 71.2 ML/MIN Glucose 115 H (74-106) mg/dL Calcium 9.5 (8.4-10.2) mg/dL Total Bilirubin 0.70 (0.2-1.3) mg/dL AST 49 (17-59) U/L ALT 32 (0-50) U/L Alkaline Phosphatase 51 (38-126) U/L Troponin I < 0.012 (0.000-0.033) ng/mL NT-Pro-B Natriuret Pep 1490 (<300) pg/mL Serum Total Protein 12.1 H (6.3-8.2) g/dL Albumin 3.4 L (3.5-5.0) g/dL Urine Color (Yellow) Urine Appearance (Clear) Urine pH (4.6-8.0) Ur Specific [place] (1.005-1.030) Urine Protein (Negative) Urine Glucose (UA) (Negative) mg/dL Urine Ketones (Negative) Urine Blood (Negative) Urine Nitrite (Negative) Urine Bilirubin (Negative) Urine Urobilinogen (0.2) mg/dL Ur Leukocyte Esterase (Negative) U Hyaline Cast (Auto) (0-2) /LPF Urine Microscopic RBC (0-5) /HPF Urine Microscopic WBC (0-5) /HPF Ur Epithelial Cells (None Seen) /HPF Urine Bacteria (None Seen) /HPF Urine Culture Reflexed (NO) - Progress Progress: improved Progress Note: I spoke to Dr. Smith at 5:37 PM. He advised to consult with patient's staff nuclear medicine technologist Dr. Salvador. From Dr. Smith's perspective patient may be discharged with close follow-up 12/20/24 17:39 I spoke to who feels patient should be admitted for observation and started on Lasix 40 mg twice daily 12/20/24 18:25 69-year-old male presents to our ED for evaluation of shortness of breath. Holly dailey has known atrial fibrillation however he is not anticoagulated as patient has a anemia of unknown origin. The anemia is currently blowing worked up. Patient's shortness of breath is progressive. No associated chest pain no nausea vomiting or diaphoresis. Patient has history of PE. CTA chest negative for PE. Patient also has a history of AAA. It looks like his AAA has increased in size however it is not large enough for an acute intervention at this time. In light of patient's ongoing shortness of breath and chest x-ray that reveals pleural effusion suggestive of decompensation patient received a dose of Lasix. We will admit patient for further evaluation and treatment. Case discussed with hospitalist Dr. Martinez who accepts admission to observation. Plan of care discussed with patient. He agrees to admission at [facility] for further evaluation and treatment. Portions of this note were created with voice recognition technology. There may be grammatical, spelling, punctuation or sound alike errors Complexity of problem addressed is moderate acute complicated. No critical care time. Complexity of data reviewed and analyzed is extensive. Test ordered chest reviewed results analyzed and correlated clinically with history and physical exam. Management discussed with hospitalist who excepts admission to observation. Patient accepted by Dr. Marie at 6:59 PM. Risk of complication and or risk of morbidity/mortality of patient management is high. Patient requires hospitalization for further evaluation and treatment. Vital stable. Time spent admit patient approximately 20 minutes. Plan of care established for shared decision making. No social determinants of health present to impede follow-up. Portions of this note were created with voice recognition technology. There may be grammatical, spelling, punctuation or sound alike errors 12/20/24 19:02 Counseled pt/family regarding: lab results, diagnosis, rad results - Departure Departure Disposition: Observation Clinical Impression: Shortness of breath, Atrial fibrillation, Normocytic anemia, Thrombocytopenia, Enlarging abdominal aortic aneurysm (AAA), Sigmoid diverticulosis, Fatty liver, Cardiomegaly, Bilateral pleural effusion, Elevated brain natriuretic peptide (BNP) level Condition: Stable Critical Care Time: No Referrals: VIVEK SMITH MD [Primary Care Provider] - Follow up/PCP as directed
[2024-12-20 14:02] LABS: ALBUMIN 3.4 g/dL (3.5-5.0); ANION GAP 17.9 MEQ/L (5-15); BILIRUBIN,TOTAL 0.7 mg/dL (0.2-1.3); Calcium 9.5 mg/dL (8.4-10.2); Creatinine 1 1.13 mg/dL (0.66-1.25); EST GLOMERULAR FILTRATION RATE 71.2 ML/MIN; Potassium 3.9 mmol/L (3.5-5.1)
[2024-12-20 14:05] LABS: Total Protein 12.1 g/dL (6.3-8.2)
--- NOTE | 2024-12-20 14:08 | XRAY ---
Indication: Short of breath. Comparison: March 20, 2018 Portable chest now demonstrates cardiomegaly and small bilateral effusions, possible cardiac decompensation/CHF. Stable lingula subsegmental atelectasis/scarring and a few tiny bilateral calcified granulomas. Bony thorax intact again with osteopenia and degenerative changes.
[2024-12-20 16:20] LABS: BAND 1 % (0.0-2.0); Eosinophil 5 % (0.8-7.0); Lymphocytes 39 % (21.8-53.1); Monocyte 7 % (5.3-12.2); Neutrophils 48 % (34.0-67.9); Nucleated Red Blood Cell 3 %; Total Cells Counted 100
[2024-12-20 16:21] LABS: Platelet Estimate DECREASED (NORMAL); Rouleau 3+
[2024-12-20 16:22] LABS: ANISOCYTOSIS 1+; Hypochromia 1+; Macrocytosis 1+
--- NOTE | 2024-12-20 16:32 | XRAY ---
Indication: Short of breath. Pulmonary embolus. Multiple contiguous axial images obtained through the chest using 100 cc Isovue 370 contrast and PE protocol. Comparison: May 05, 2024 Adequate opacification pulmonary arteries to include lobar and segmental branches. No pulmonary embolus. Heart is now enlarged again with scattered coronary calcifications. Aorta again minimal atherosclerotic without aneurysm/dissection. Stable small mediastinal and bilateral hilar calcified nodes. No pathologic mediastinal/hilar lymphadenopathy. Lungs again hyperinflated with lingula peripheral fibrosis/scarring and a few tiny calcified granulomas bilaterally. New tiny right effusion. No new pulmonary mass/nodule or consolidation. Bony thorax intact again with osteopenia and mild/moderate degenerative changes throughout spine. CTA abdomen/pelvis reported separately. Impression: 1. Negative pulmonary embolus. 2. New cardiomegaly and tiny right effusion. 3. Again chronic findings including pulmonary fibrosis/scarring, arteriosclerotic disease, chronic bony findings, and old granulomatous disease.
--- NOTE | 2024-12-20 16:38 | XRAY ---
Indication: AAA. Symptomatic anemia. Conventional contrast enhanced CTA abdomen only performed using 100 cc Isovue 370 contrast. 2-D sagittal and coronal reformatted images obtained. Additional 3-D reformatted images obtained using separate workstation. Comparison: CT abdomen/pelvis without contrast July 19, 2022. CT chest reported separately. Progressive worsening mild scattered aortobiiliac calcifications. Normal CTA appearance to celiac, superior mesenteric, left/right main renal, and inferior mesenteric arteries. Distal abdominal aorta are again demonstrates fusiform aneurysm up to 3.5 x 3.7 4.2 cm, previously 2.9 x 3.4 x 4.2 cm. Visualized iliac arteries are bilaterally symmetric. No free fluid/air. Noncontrasted stomach and visualized bowel loops appear nonobstructed again with scattered descending and sigmoid diverticulosis. Stable fatty liver. Remaining liver, gallbladder, pancreas, spleen, adrenal glands, kidneys, and proximal ureters are unremarkable. No pathological retroperitoneal lymphadenopathy. Visualized osseous structures intact again with osteopenia and mild/moderate multilevel thoracolumbar degenerative spondylosis. Impression: 1. CTA abdomen with contrast exam demonstrates minimally worsening arteriosclerotic aorta with minimally enlarging distal AAA as detailed. 2. Chronic findings including fatty liver, colonic diverticulosis, and chronic bony findings.
[2024-12-20 17:44] LABS: Appearance Clear (Clear); Bacteria None Seen /HPF (None Seen); Bilirubin Negative (Negative); Blood Negative (Negative); Epithelial Cells None Seen /HPF (None Seen); Glucose, Urine Negative (Negative); Hyaline Casts NONE SEEN /LPF (0-2); Ketones Negative (Negative); Leukocyte Esterase Negative (Negative); Nitrite Negative (Negative); Ph 7.5 (4.6-8.0); Protein,Urine Dip Negative (Negative); RBC 0-2 /HPF (0-5); WBC 0-2 /HPF (0-5)
[2024-12-20] MEDS ORDERED: Lasix 40 MG/4 ML ONE (18:52)
[2024-12-20] MEDS: Lasix 40 MG/4 ML IV ONE (18:55)
--- NOTE | 2024-12-20 22:31 | PCM.HP ---
History of Present Illness - Chief Complaint Chief Complaint: shortness of breath Date: 12/20/24 History of Present Illness: 69-year-old man with history of CAD, DM2, HTN, COPD, CHIQUI on CPAP, prior tobacco abuse, who presents with dyspnea. Patient notes that for the past 2 and half weeks, he has had constant dyspnea, worse with exertion. Not associated with chest pain, nausea, numbness, diaphoresis, leg edema, orthopnea, or PND. It has been getting progressively worse. He is a former 2 pack/day smoker for many years, quit 2 months ago. Last week, he was diagnosed in PCPs office with A-fib. He was initially started on anticoagulation, but when his labs showed hemoglobin of 8.7, they were stopped, and he was referred to cardiology. Denies any prior history of cardiac arrhythmia. Denies any melena or hematochezia. No history of prior GI bleeding or episodes of anemia. - Review of Systems Neurological: Headache (intermittent) All Other Systems: Reviewed and Negative Medications & Allergies Home Medications: Home Medication List Aspirin [Aspirin EC] 81 mg PO HS 04/17/13 [History Confirmed 12/20/24] Atorvastatin Calcium [Lipitor] 40 mg PO HS 04/17/13 [History Confirmed 12/20/24] Clopidogrel Bisulfate [PLAVIX Tablet] 75 mg PO DAILY 04/17/13 [History Confirmed 12/20/24] Fenofibrate,Micronized 145 mg* [Tricor 145 MG] 145 mg PO HS 04/17/13 [History Confirmed 12/20/24] Magnesium Oxide 400 mg [Mag-Ox 400] 250 mg PO DAILY 04/17/13 [History Confirmed 12/20/24] Metoprolol Succinate 25 mg Xl* [Toprol-Xl 25MG Tablets] 25 mg PO BID 04/17/13 [History Confirmed 12/20/24] Multivitamin [Men's Multi-Vitamin] 1 each PO DAILY 04/17/13 [History Confirmed 12/20/24] Fexofenadine HCl [Saba] 180 mg PO HS 12/31/14 [History Confirmed 12/20/24] Lisinopril/Hydrochlorothiazide [Lisinopril-Hctz 20-12.5 mg Tab] 1 each PO BID 12/31/14 [History Confirmed 12/20/24] Glipizide 5 mg [Glucotrol 5 MG] 5 mg PO BID 10/12/15 [History Confirmed 12/20/24] Metformin HCl 500 mg [Glucophage 500 MG] 500 mg PO BID 10/12/15 [History Confirmed 12/20/24] Vitamin E 400 Units [Vitamin E 400 UNIT SOFTGEL] 400 unit PO DAILY 10/12/15 [History Confirmed 12/20/24] PANTOPRAZOLE 40 mg Tablet [Protonix 40MG Tablet] 40 mg PO BID 09/27/16 [History Confirmed 12/20/24] Nitroglycerin 0.4 mg Tablet [Nitrostat 0.4 MG Tablet] 0.4 mg SL UD 10/02/16 [History Confirmed 12/20/24] ALPRAZolam 1 MG [Xanax 1 mg] 1 mg PO TID PRN PRN 03/20/18 [History Confirmed 12/20/24] [place]-3 Fatty Acids/Fish Oil [Fish Oil 1,000 mg Capsule] 1 ea PO DAILY 03/20/18 [History Confirmed 12/20/24] Cyclobenzaprine HCl 10 mg [Cyclobenzaprine 10 MG] 10 mg PO HS 05/08/18 [History Confirmed 12/20/24] Albuterol Sulfate [Proair Hfa] 1 puff IH DAILY PRN PRN 10/12/20 [History Confirmed 12/20/24] Ergocalciferol (Vitamin D2) [Vitamin D2] 1 tab PO WEEKLY 10/12/20 [History Confirmed 12/20/24] Fluticasone Propion/Salmeterol [Wixela 250-50 Inhub] 2 puff IH BID 10/12/20 [Hi story Confirmed 12/20/24] Insulin Glargine,Hum.rec.anlog [Lantus Solostar] 60 units SQ BID 10/12/20 [History Confirmed 12/20/24] Ascorbic Acid [Vitamin C] 1,000 mg PO DAILY 08/27/21 [History Confirmed 12/20/24] Cider Vinegar [Apple Cider Vinegar] 0 mg PO DAILY 08/27/21 [History Confirmed 12/20/24] Cyanocobalamin 500 Mcg [Vitamin B-12 500 MCG] 1,000 mcg PO DAILY 08/27/21 [History Confirmed 12/20/24] Topiramate [Topamax] 25 mg PO TID PRN 08/27/21 [History Confirmed 12/20/24] Ubidecarenone [Co Q10] 200 mg PO DAILY 08/27/21 [History Confirmed 12/20/24] Zinc 50 mg PO DAILY 08/27/21 [History Confirmed 12/20/24] Allergies/Adverse Reactions: Allergies Allergy/AdvReac Type Severity Reaction Status Date / Time codeine AdvReac Mild hyperactive Verified 12/20/24 13:01 /nausea morphine AdvReac Mild Itching Verified 12/20/24 13:01 hydromorphone HCl AdvReac ITCH Verified 12/20/24 13:01 [From Dilaudid] - Past Medical History Past Medical History: Yes Neurological History: Peripheral Neuropathy ENT History: Cataracts Cardiac History: Arrhythmia, Congestive Heart Failure, Hypertension, Myocardial Infarction (CT) Respiratory History: Asthma, CHF, COPD, Pulmonary Embolism, Sleep Apnea Endocrine Medical History: Diabetes Type II, Hypothyroidism Musculoskelatal History: Arthritis, Osteoarthritis GI Medical History: Colitis, Diverticulitis, Hemorrhoids, Pancreatitis History: No Pertinent History Pyscho-Social History: Anxiety Male Reproductive Disorders: No Pertinent History Comment: cluster headaches, bursitis, new onset a fib 12/28 - Past Surgical History Past Surgical History: Yes Neuro Surgical History: No Pertinent History Cardiac History: Cardiac Stent Respiratory Surgery: No Pertinent History GI Surgical History: No Pertinent History Genitourinary Surgical Hx: No Pertinent History Musculskeletal Surgical Hx: Other Male Surgical History: Vasectomy Other Surgical History: multiple back surgeries, nerve ablations Significant Family History: heart disease - Social History Smoking Status: Former smoker (2 pack per day for many years, quit 2 months ago) How long have you smoked: 55 years Exposure to second hand smoke: Yes Alcohol: None Drug Use: none - Social Determinants of Health Will the patient participate in the screening: Yes Do you worry about a steady place to live?: No Do you have any problems with any of the following?: No known problems In the past 12 months,have you had to go without utilities?: No Have you or anyone in your house had to go without enough: No Transportation Issues: No Has anyone in your support network made you feel unsafe?: No Does the patient want assistance with any of the above?: No - Physical Exam Vital Signs: Vital Signs - 24 hr Temp Pulse Resp BP BP Pulse Ox 12/20/24 20:57 82 18 96 12/20/24 20:35 97.0 F 92 H 24 124/80 95 12/20/24 19:05 96 12/20/24 19:01 85 22 99/64 98 12/20/24 18:30 94 H 17 118/96 95 12/20/24 18:00 81 20 123/79 97 12/20/24 17:30 88 20 125/91 97 12/20/24 17:03 87 18 140/111 95 12/20/24 15:00 89 23 148/95 95 12/20/24 14:35 94 L 12/20/24 14:30 87 18 126/73 95 12/20/24 13:13 24 96 12/20/24 13:12 97.0 F 96 H 20 132/68 96 Physical Exam GEN: Sitting up in bed in no acute distress. HENT: Normocephalic, atraumatic. Moist mucous membranes. EYES: Normal inspection, anicteric sclera, extraocular movements intact. NECK: Supple, full range of motion CV: Regular rate and rhythm, no murmurs, no gallops. No JVD or edema. PULM: Clear to auscultation bilaterally, no work of breathing. On room air. ABD: Nondistended, nontender. MSK: No joint effusions, full range of motion SKIN: No rashes, normal color. NEURO: Face symmetric, no focal motor or sensory deficits. PSYCH: Alert, oriented x 3 Results - Labs Lab/Micro Results: Lab Results-Last 24 Hours 12/20/24 12/20/24 12/20/24 Range/Units 13:20 13:20 13:20 WBC 7.7 (4.23-9.07) x10^3/uL RBC 2.97 L (4.63-6.08) x10^6/uL Hgb 8.6 L (13.7-17.5) g/dL Hct 26.3 L (40.1-51.0) % MCV 88.6 (79.0-92.2) fL MCH 29.0 (25.7-32.2) pg MCHC 32.7 (32.3-36.5) g/dL RDW 21.7 H (11.6-14.4) % Plt Count 124 L (163-337) x10^3/uL MPV 10.2 (9.4-12.4) fL Segmented Neutrophils 48 (34.0-67.9) % Band Neutrophils 1 (0.0-2.0) % Lymphocytes (Manual) 39 (21.8-53.1) % Monocytes (Manual) 7 (5.3-12.2) % Eosinophils (Manual) 5 (0.8-7.0) % Nucleated RBCs 3 % Hypochromia 1+ Platelet Estimate DECREASED (NORMAL) RBC Morphology ABNORMAL Anisocytosis 1+ Macrocytosis 1+ Rouleaux 3+ Smear Path Review Pending D-Dimer (0.0-0.50) mg/L Sodium 138 (135-145) mmol/L Potassium 3.9 (3.5-5.1) mmol/L Chloride 106 (98-107) mmol/L Carbon Dioxide 18 L (22-30) mmol/L Anion Gap 17.9 H (5-15) MEQ/L BUN 17 (9-20) mg/dL Creatinine 1.13 (0.66-1.25) mg/dL Estimated GFR 71.2 ML/MIN Glucose 115 H (74-106) mg/dL Calcium 9.5 (8.4-10.2) mg/dL Total Bilirubin 0.70 (0.2-1.3) mg/dL AST 49 (17-59) U/L ALT 32 (0-50) U/L Alkaline Phosphatase 51 (38-126) U/L Troponin I < 0.012 (0.000-0.033) ng/mL NT-Pro-B Natriuret Pep 1490 (<300) pg/mL Serum Total Protein 12.1 H (6.3-8.2) g/dL Albumin 3.4 L (3.5-5.0) g/dL Urine Color (Yellow) Urine Appearance (Clear) Urine pH (4.6-8.0) Ur Specific [place] (1.005-1.030) Urine Protein (Negative) Urine Glucose (UA) (Negative) mg/dL Urine Ketones (Negative) Urine Blood (Negative) Urine Nitrite (Negative) Urine Bilirubin (Negative) Urine Urobilinogen (0.2) mg/dL Ur Leukocyte Esterase (Negative) U Hyaline Cast (Auto) (0-2) /LPF Urine Microscopic RBC (0-5) /HPF Urine Microscopic WBC (0-5) /HPF Ur Epithelial Cells (None Seen) /HPF Urine Bacteria (None Seen) /HPF Urine Culture Reflexed (NO) 12/20/24 12/20/24 12/20/24 Range/Units 13:20 16:55 17:35 WBC (4.23-9.07) x10^3/uL RBC (4.63-6.08) x10^6/uL Hgb (13.7-17.5) g/dL Hct (40.1-51.0) % MCV (79.0-92.2) fL MCH (25.7-32.2) pg MCHC (32.3-36.5) g/dL RDW (11.6-14.4) % Plt Count (163-337) x10^3/uL MPV (9.4-12.4) fL Segmented Neutrophils (34.0-67.9) % Band Neutrophils (0.0-2.0) % Lymphocytes (Manual) (21.8-53.1) % Monocytes (Manual) (5.3-12.2) % Eosinophils (Manual) (0.8-7.0) % Nucleated RBCs % Hypochromia Platelet Estimate (NORMAL) RBC Morphology Anisocytosis Macrocytosis Rouleaux Smear Path Review D-Dimer < 0.19 (0.0-0.50) mg/L Sodium (135-145) mmol/L Potassium (3.5-5.1) mmol/L Chloride (98-107) mmol/L Carbon Dioxide (22-30) mmol/L Anion Gap (5-15) MEQ/L BUN (9-20) mg/dL Creatinine (0.66-1.25) mg/dL Estimated GFR ML/MIN Glucose (74-106) mg/dL Calcium (8.4-10.2) mg/dL Total Bilirubin (0.2-1.3) mg/dL AST (17-59) U/L ALT (0-50) U/L Alkaline Phosphatase (38-126) U/L Troponin I < 0.012 (0.000-0.033) ng/mL NT-Pro-B Natriuret Pep (<300) pg/mL Serum Total Protein (6.3-8.2) g/dL Albumin (3.5-5.0) g/dL Urine Color Yellow (Yellow) Urine Appearance Clear (Clear) Urine pH 7.5 (4.6-8.0) Ur Specific [place] 1.010 (1.005-1.030) Urine Protein Negative (Negative) Urine Glucose (UA) Negative (Negative) mg/dL Urine Ketones Negative (Negative) Urine Blood Negative (Negative) Urine Nitrite Negative (Negative) Urine Bilirubin Negative (Negative) Urine Urobilinogen 1.0 A (0.2) mg/dL Ur Leukocyte Esterase Negative (Negative) U Hyaline Cast (Auto) NONE SEEN (0-2) /LPF Urine Microscopic RBC 0-2 (0-5) /HPF Urine Microscopic WBC 0-2 (0-5) /HPF Ur Epithelial Cells None Seen (None Seen) /HPF Urine Bacteria None Seen (None Seen) /HPF Urine Culture Reflexed NO (NO) - Radiology Impressions Radiology Exams & Impressions: Radiology Procedures Category Date Time Status CHEST 1 VIEW (PORTABLE) Stat Exams 12/20/24 13:15 Completed CHEST WITH CONTRAST [CT] Stat Exams 12/20/24 14:00 Completed CTA ABDOMEN W AND/OR WO CONTRA [CT] Stat Exams 12/20/24 14:01 Completed ECHO W/2D AND DOPPLER [US] Routine Exams 12/20/24 22:21 Ordered Chest x-ray cardiomegaly, some indistinct haziness, no effusions. (Images personally reviewed) CT chest no pulmonary embolism, no edema, mild peripheral fibrosis in the lingula with some scattered tiny calcified granulomas. No edema or septal thickening noted. (Images reviewed personally) CTA abdomen/pelvis slight progression of AAA, up to 3.5 cm. No other acute findings. - Other Procedures and Tests Respiratory Therapy 12/20/24 20:54 Respiratory Therapy Assessment DAILY 12/20/24 20:56 Respiratory MDI BID 12/20/24 21:00 BiPap/CPAP ROUTINE Assessment/Plan (1) Shortness of breath Current Visit: Yes Status: Acute Assessment & Plan: 69-year-old man with history of CAD, DM2, HTN, COPD, CHIQUI on CPAP, and former tobacco abuse, here with progressive dyspnea. ## Dyspnea etiology is not totally clear. Patient has mildly elevated BNP, but no history or physical exam findings consistent with volume overload. There is some haziness on his chest x-ray, but CT chest did not show any pulmonary edema, septal thickening, or groundglass opacities. He has a heavy smoking history, but no emphysematous changes on imaging, although the scarring in the lingula might be related to this. He has a new anemia of unknown origin, but his hemoglobin is stable at 8.6, and most patients are not symptomatic at that level. Possibly ACS, but no EKG changes, and first 2 troponins were negative he is currently stable on room air. Patient was given trial of Lasix 40 mg in the ED; will evaluate patient and see if he improves on that as effective test for hypervolemia, although exam findings do not support this Check echocardiogram (needed anyway as part of his workup for new onset A-fib, see below) Check third troponin Monitor on telemetry ## Anemia possibly symptomatic, although would not typically expect this with a hemoglobin of 8.6. Hemodynamically stable. Hemoglobin level is stable from labs drawn last week by PCP. Patient denies any melena or hematochezia. Hemoglobin was 12.8 in September. It appears that if he is having any bleeding, it is slow. Check iron/TIBC, ferritin, reticulocyte Will need follow-up with GI ## New onset atrial fibrillation appears to be paroxysmal, as patient is currently in normal sinus rhythm. But diagnosed in Dr. Smith's office last week. Possibly related to his dyspnea, although typically this is mitigated more by CHF from lack of atrial kick in by a direct effect from the A-fib. He was briefly started anticoagulation but was stopped due to the finding of anemia as above. Check echo Agree with holding anticoagulation until anemia is evaluated, given relatively recent drop over the last few months. Monitor on telemetry ## Type 2 diabetes hemoglobin A1c was 7.2 in September. Continue home Lantus BID, but decrease to 40 units With high-dose sliding scale insulin Repeat hemoglobin A1c Diabetic diet ## History of COPD, CHIQUI on CPAP with no wheezing currently. Does not appear to be playing a role in his current dyspnea. Continue PRN albuterol Place on home CPAP at night ## CAD despite new dyspnea, does not appear to be having any angina. Continue home aspirin 81, Plavix 75, atorvastatin 40 QHS, Toprol-XL 25 BID CODE STATUS: Full code Prophylaxis: Lovenox 40 mg Diet: Diabetic Dispo: Place in observation, expect discharge to home in the next 24 to 48 hours Entirety of encounter took place via live audio/video telemedicine device, with remote physician and patient in hospital, with the assistance of bedside nurse. Code(s): R06.02 - SHORTNESS OF BREATH Telemedicine Encounter - Telemedicine Encounter Telemedicine Encounter: "The entirety of this encounter was performed via Telemedicine" This visit was performed using real-time audio and video connection between my location and thepatients locationwith the assistance of a surrogateat the patients location. Written or verbal consent was obtained from the patient/guardian to perform this visit usi[email or web address]. Any patient questions regarding the telemedicine interaction were answered.
[2024-12-20] MEDS: TYLENOL 325 MG PO PRN (23:16)
[2024-12-20] MEDS: XANAX 1 MG PO PRN (23:16)
[2024-12-21 05:07] LABS: Mean Cell Volume 89.3 fL (79.0-92.2); Mean Corpuscular Hemoglobin 28.6 pg (25.7-32.2); Mean Platelet Volume 10.4 fL (9.4-12.4); Platelet Count 116 x10^3/uL (163-337); RETICULOCYTE % 1.5 % (0.51-1.81); RETICULOCYTE HEMOGLOBIN 32.5 pg (28-36.6); White Blood Count 6.8 x10^3/uL (4.23-9.07)
--- NOTE | 2024-12-21 05:13 | PCM.NOTE ---
Date and Time: 12/21/24 0507 Subjective Assessment: HPI: MR. Forte is a 69-year-old male with a history of coronary artery disease, type 2 diabetes mellitus, hypertension, chronic obstructive pulmonary disease, and obstructive sleep apnea on CPAP who presented to ED 12/20/24 with progressively worsening dyspnea over the past 2.5 weeks, exacerbated by exertion but without associated chest pain, orthopnea, paroxysmal nocturnal dyspnea, or lower extremity edema. Notably, he was recently diagnosed with atrial fibrillation and briefly initiated on anticoagulation, which was subsequently discontinued due to newly identified anemia (hemoglobin 8.6, down from 12.8 in September). His evaluation revealed a mildly elevated BNP but no clinical or radiographic evidence of volume overload, aside from some lingular scarring on imaging. Initial troponins were negative, and he remained hemodynamically stable on room air. To assess for underlying hypervolemia, he received a trial of Lasix in the ED, and telemetry monitoring was initiated. Given his anemia of unclear etiology, iron studies, ferritin, and reticulocyte count were ordered, with planned GI follow-up for further investigation. An echocardiogram was obtained to evaluate for atrial fibrillation-related cardiac dysfunction, and anticoagulation was deferred pending further assessment of the anemia. His diabetes regimen was adjusted with a reduction in Lantus and repeat hemoglobin A1c testing. COPD and CHIQUI were deemed unlikely contributors to his dyspnea, and he remained on albuterol as needed with continued CPAP use at night. His coronary artery disease appeared stable without anginal symptoms, and he continued guideline-directed medical therapy, including aspirin, clopidogrel, atorvastatin, and metoprolol. 12/21/24: Met with patient bedside. Endorses continued exertional dyspnea, with an unclear etiology. Dyspnea possibly related to atrial fibrillation, chronic anemia, or congestive heart failure. An echocardiogram is pending for further cardiac evaluation. Laboratory findings reveal hemoglobin of 8 with an iron saturation of 31%, warranting stool occult blood testing to assess for potential GI blood loss. BNP remains elevated at 1490, suggesting persistent cardiac strain. The plan includes ongoing diuresis for volume management, further anemia workup, and a respiratory therapy-administered walk test to evaluate the need for home oxygen. - Review of Systems Constitutional: No Symptoms Eyes: No Symptoms Ears, Nose, & Throat: No Symptoms Respiratory: Short Of Breath Cardiac: No Symptoms, Edema Abdominal/Gastrointestinal: No Symptoms Genitourinary Symptoms: No Symptoms Musculoskeletal: No Symptoms Skin: No Symptoms Neurological: No Symptoms Psychological: No Symptoms Endocrine: No Symptoms Hematologic/Lymphatic: No Symptoms Immunological/Allergic: No Symptoms Objective Exam General Appearance: no apparent distress Neurologic Exam: alert, oriented x 3, cooperative Skin Exam: normal color Eye Exam: PERRL Ears, Nose, Throat Exam: normal ENT inspection Neck Exam: normal inspection Respiratory Exam: lungs clear, diminished breath sounds Cardiovascular Exam: regular rate/rhythm, normal heart sounds Gastrointestinal/Abdomen Exam: soft, normal bowel sounds Extremity Exam: normal inspection Back Exam: normal inspection Male Genitalia Exam: deferred Rectal Exam: deferred Objective Data Vital Signs: Vital Signs - 24 hr Temp Pulse Resp BP BP Pulse Ox 12/21/24 04:00 98.6 F 86 16 102/61 95 12/20/24 23:48 98.6 F 100 H 16 127/77 94 L 12/20/24 20:57 82 18 96 12/20/24 20:35 97.0 F 92 H 24 124/80 95 12/20/24 19:05 96 12/20/24 19:01 85 22 99/64 98 12/20/24 18:30 94 H 17 118/96 95 12/20/24 18:00 81 20 123/79 97 12/20/24 17:30 88 20 125/91 97 12/20/24 17:03 87 18 140/111 95 12/20/24 15:00 89 23 148/95 95 12/20/24 14:35 94 L 12/20/24 14:30 87 18 126/73 95 12/20/24 13:13 24 96 12/20/24 13:12 97.0 F 96 H 20 132/68 96 Pain Assessment - Last Documented Pain Intensity 8 Pain Scale Used 0-10 Pain Scale Intake and Output: Intake & Output 12/18/24 12/19/24 12/20/24 12/21/24 11:59 11:59 11:59 11:59 Weight 132.6 kg Lab Results: Lab Results-Last 24 Hours 12/20/24 12/20/24 12/20/24 Range/Units 13:20 13:20 13:20 WBC 7.7 (4.23-9.07) x10^3/uL RBC 2.97 L (4.63-6.08) x10^6/uL Hgb 8.6 L (13.7-17.5) g/dL Hct 26.3 L (40.1-51.0) % MCV 88.6 (79.0-92.2) fL MCH 29.0 (25.7-32.2) pg MCHC 32.7 (32.3-36.5) g/dL RDW 21.7 H (11.6-14.4) % Plt Count 124 L (163-337) x10^3/uL MPV 10.2 (9.4-12.4) fL Segmented Neutrophils 48 (34.0-67.9) % Band Neutrophils 1 (0.0-2.0) % Lymphocytes (Manual) 39 (21.8-53.1) % Monocytes (Manual) 7 (5.3-12.2) % Eosinophils (Manual) 5 (0.8-7.0) % Nucleated RBCs 3 % Hypochromia 1+ Platelet Estimate DECREASED (NORMAL) RBC Morphology ABNORMAL Anisocytosis 1+ Macrocytosis 1+ Rouleaux 3+ Smear Path Review Pending D-Dimer (0.0-0.50) mg/L Sodium 138 (135-145) mmol/L Potassium 3.9 (3.5-5.1) mmol/L Chloride 106 (98-107) mmol/L Carbon Dioxide 18 L (22-30) mmol/L Anion Gap 17.9 H (5-15) MEQ/L BUN 17 (9-20) mg/dL Creatinine 1.13 (0.66-1.25) mg/dL Estimated GFR 71.2 ML/MIN Glucose 115 H (74-106) mg/dL POC Glucometer (74 to 106) mg/dL Calcium 9.5 (8.4-10.2) mg/dL Total Bilirubin 0.70 (0.2-1.3) mg/dL AST 49 (17-59) U/L ALT 32 (0-50) U/L Alkaline Phosphatase 51 (38-126) U/L Troponin I < 0.012 (0.000-0.033) ng/mL NT-Pro-B Natriuret Pep 1490 (<300) pg/mL Serum Total Protein 12.1 H (6.3-8.2) g/dL Albumin 3.4 L (3.5-5.0) g/dL Urine Color (Yellow) Urine Appearance (Clear) Urine pH (4.6-8.0) Ur Specific [place] (1.005-1.030) Urine Protein (Negative) Urine Glucose (UA) (Negative) mg/dL Urine Ketones (Negative) Urine Blood (Negative) Urine Nitrite (Negative) Urine Bilirubin (Negative) Urine Urobilinogen (0.2) mg/dL Ur Leukocyte Esterase (Negative) U Hyaline Cast (Auto) (0-2) /LPF Urine Microscopic RBC (0-5) /HPF Urine Microscopic WBC (0-5) /HPF Ur Epithelial Cells (None Seen) /HPF Urine Bacteria (None Seen) /HPF Urine Culture Reflexed (NO) 12/20/24 12/20/24 12/20/24 Range/Units 13:20 16:55 17:35 WBC (4.23-9.07) x10^3/uL RBC (4.63-6.08) x10^6/uL Hgb (13.7-17.5) g/dL Hct (40.1-51.0) % MCV (79.0-92.2) fL MCH (25.7-32.2) pg MCHC (32.3-36.5) g/dL RDW (11.6-14.4) % Plt Count (163-337) x10^3/uL MPV (9.4-12.4) fL Segmented Neutrophils (34.0-67.9) % Band Neutrophils (0.0-2.0) % Lymphocytes (Manual) (21.8-53.1) % Monocytes (Manual) (5.3-12.2) % Eosinophils (Manual) (0.8-7.0) % Nucleated RBCs % Hypochromia Platelet Estimate (NORMAL) RBC Morphology Anisocytosis Macrocytosis Rouleaux Smear Path Review D-Dimer < 0.19 (0.0-0.50) mg/L Sodium (135-145) mmol/L Potassium (3.5-5.1) mmol/L Chloride (98-107) mmol/L Carbon Dioxide (22-30) mmol/L Anion Gap (5-15) MEQ/L BUN (9-20) mg/dL Creatinine (0.66-1.25) mg/dL Estimated GFR ML/MIN Glucose (74-106) mg/dL POC Glucometer (74 to 106) mg/dL Calcium (8.4-10.2) mg/dL Total Bilirubin (0.2-1.3) mg/dL AST (17-59) U/L ALT (0-50) U/L Alkaline Phosphatase (38-126) U/L Troponin I < 0.012 (0.000-0.033) ng/mL NT-Pro-B Natriuret Pep (<300) pg/mL Serum Total Protein (6.3-8.2) g/dL Albumin (3.5-5.0) g/dL Urine Color Yellow (Yellow) Urine Appearance Clear (Clear) Urine pH 7.5 (4.6-8.0) Ur Specific [place] 1.010 (1.005-1.030) Urine Protein Negative (Negative) Urine Glucose (UA) Negative (Negative) mg/dL Urine Ketones Negative (Negative) Urine Blood Negative (Negative) Urine Nitrite Negative (Negative) Urine Bilirubin Negative (Negative) Urine Urobilinogen 1.0 A (0.2) mg/dL Ur Leukocyte Esterase Negative (Negative) U Hyaline Cast (Auto) NONE SEEN (0-2) /LPF Urine Microscopic RBC 0-2 (0-5) /HPF Urine Microscopic WBC 0-2 (0-5) /HPF Ur Epithelial Cells None Seen (None Seen) /HPF Urine Bacteria None Seen (None Seen) /HPF Urine Culture Reflexed NO (NO) 12/20/24 12/21/24 12/21/24 Range/Units 22:20 02:58 02:58 WBC (4.23-9.07) x10^3/uL RBC (4.63-6.08) x10^6/uL Hgb (13.7-17.5) g/dL Hct (40.1-51.0) % MCV (79.0-92.2) fL MCH (25.7-32.2) pg MCHC (32.3-36.5) g/dL RDW (11.6-14.4) % Plt Count (163-337) x10^3/uL MPV (9.4-12.4) fL Segmented Neutrophils (34.0-67.9) % Band Neutrophils (0.0-2.0) % Lymphocytes (Manual) (21.8-53.1) % Monocytes (Manual) (5.3-12.2) % Eosinophils (Manual) (0.8-7.0) % Nucleated RBCs % Hypochromia Platelet Estimate (NORMAL) RBC Morphology Anisocytosis Macrocytosis Rouleaux Smear Path Review D-Dimer (0.0-0.50) mg/L Sodium (135-145) mmol/L Potassium (3.5-5.1) mmol/L Chloride (98-107) mmol/L Carbon Dioxide (22-30) mmol/L Anion Gap (5-15) MEQ/L BUN (9-20) mg/dL Creatinine (0.66-1.25) mg/dL Estimated GFR ML/MIN Glucose (74-106) mg/dL POC Glucometer 72 L 72 L (74 to 106) mg/dL Calcium (8.4-10.2) mg/dL Total Bilirubin (0.2-1.3) mg/dL AST (17-59) U/L ALT (0-50) U/L Alkaline Phosphatase (38-126) U/L Troponin I 0.013 (0.000-0.033) ng/mL NT-Pro-B Natriuret Pep (<300) pg/mL Serum Total Protein (6.3-8.2) g/dL Albumin (3.5-5.0) g/dL Urine Color (Yellow) Urine Appearance (Clear) Urine pH (4.6-8.0) Ur Specific [place] (1.005-1.030) Urine Protein (Negative) Urine Glucose (UA) (Negative) mg/dL Urine Ketones (Negative) Urine Blood (Negative) Urine Nitrite (Negative) Urine Bilirubin (Negative) Urine Urobilinogen (0.2) mg/dL Ur Leukocyte Esterase (Negative) U Hyaline Cast (Auto) (0-2) /LPF Urine Microscopic RBC (0-5) /HPF Urine Microscopic WBC (0-5) /HPF Ur Epithelial Cells (None Seen) /HPF Urine Bacteria (None Seen) /HPF Urine Culture Reflexed (NO) Radiology Exams: Radiology Procedures Category Date Time Status CHEST 1 VIEW (PORTABLE) Stat Exams 12/20/24 13:15 Completed CHEST WITH CONTRAST [CT] Stat Exams 12/20/24 14:00 Completed CTA ABDOMEN W AND/OR WO CONTRA [CT] Stat Exams 12/20/24 14:01 Completed ECHO W/2D AND DOPPLER [US] Routine Exams 12/21/24 08:00 Ordered Multi-Disciplinary Progress Notes: Multi-Disciplinary Progress Notes 12/20/24 21:39 Respiratory Note by Mignon Roman RT noted that patient appeared SOB. Patient states he is mildly SOB but refuses neb or MDI tx at this time. RT advised pt to call if he changes his mind and would like tx, pt verbalizes understanding. Initialized on 12/20/24 21:39 - END OF NOTE Assessment/Plan (1) Dyspnea Current Visit: Yes Status: Acute Assessment & Plan: -CXR reviewed with cardiomegaly and small bilateral effusions, possible cardiac decompensation/CHF -CT chest reviewed again wit new cardiomegaly and tiny right effusion. Chronic findings including pulmonary fibrosis/scarring, arteriosclerotic disease, chronic bony findings, and old granulomatous disease. -CT abdomen with minimally worsening arteriosclerotic aorta with minimally enlarging distal AAA as detailed -Received Lasix in ED - continue -echo -Supplemental oxygen to maintain spo2 goal > 90% -tele -DuoNebs prn -Continue CPAP at night for CHIQUI -Walk test Code(s): R06.00 - DYSPNEA, UNSPECIFIED (2) Anemia Current Visit: Yes Status: Acute Assessment & Plan: -Iron labs with iron sat at 31% -GI follow up -Hgb reviewed at 8.0- trend -Occult stools Code(s): D64.9 - ANEMIA, UNSPECIFIED (3) Type 2 diabetes mellitus Current Visit: Yes Status: Acute Assessment & Plan: Continue home Lantus BID, but decrease to 40 units HD sliding scale insulin A1c 6.20 ADA diet (4) COPD (chronic obstructive pulmonary disease) Current Visit: Yes Status: Acute Assessment & Plan: -see dyspnea (5) CHIQUI on CPAP Current Visit: Yes Status: Acute Assessment & Plan: -continue CPAP Code(s): G47.33 - OBSTRUCTIVE SLEEP APNEA (ADULT) (PEDIATRIC) (6) CAD (coronary artery disease) Current Visit: Yes Status: Acute Assessment & Plan: Continue home aspirin 81, Plavix 75, atorvastatin 40 QHS, Toprol-XL 25 BID Code(s): I25.10 - ATHSCL HEART DISEASE OF [place] CORONARY ARTERY W/O ANG PCTRS (7) Atrial fibrillation Current Visit: Yes Status: Acute Assessment & Plan: appears to be paroxysmal, as patient is currently in normal sinus rhythm. But diagnosed in Dr. Smith's office last week. Possibly related to his dyspnea, although typically this is mitigated more by CHF from lack of atrial kick in by a direct effect from the A-fib. He was briefly started anticoagulation but was stopped due to the finding of anemia as above. Check echo Agree with holding anticoagulation until anemia is evaluated, given relatively recent drop over the last few months. Monitor on telemetry CODE STATUS: Full code Prophylaxis: Lovenox 40 mg Diet: Diabetic Dispo: home in the next 24 to 48 ho Code(s): I48.91 - UNSPECIFIED ATRIAL FIBRILLATION
[2024-12-21 06:07] LABS: Iron 97 ug/dL (49-181); Iron Saturation 31 % (20-39); TIBC 313 ug/dL (261-497)
[2024-12-21 06:10] LABS: ANION GAP 17.2 MEQ/L (5-15); Calcium 9.5 mg/dL (8.4-10.2); Creatinine 1 1.19 mg/dL (0.66-1.25); Ferritin 44.3 ng/mL (17.9-464); Potassium 3.6 mmol/L (3.5-5.1)
[2024-12-21] MEDS: Advair Hfa 230/21 Mcg COMMON CANISTER IH SCH (06:17)
[2024-12-21] MEDS: Vitamin B-12 500 MCG PO SCH (09:28)
[2024-12-21] MEDS: Protonix 40MG Tablet PO SCH (09:28)
[2024-12-21] MEDS: Toprol-Xl 25MG Tablets PO SCH (09:29)
[2024-12-21] MEDS: Zestril 20 MG*** 20 MG, hydroDIURIL 25 MG*** 12.5 MG PO SCH (09:29)
[2024-12-21] MEDS: CLARITIN 10 MG PO SCH (09:29)
[2024-12-21] MEDS ORDERED: hydroDIURIL 25 MG ONE (09:32)
[2024-12-21] MEDS: PLAVIX Tablet PO SCH (09:33)
[2024-12-21] MEDS: ENOXAPARIN SODIUM SQ SCH (09:34)
[2024-12-21] MEDS: MAG-OX 400 PO SCH (09:34)
[2024-12-21] MEDS: Lantus Insulin SQ SCH (09:35)
[2024-12-21] MEDS: Zinc Gluconate 50 MG PO SCH (09:36)
[2024-12-21] MEDS ORDERED: NON-FORMULARY ITEM (Zinc [Zinc] 50 MG Tablet) PO SCH (10:00)
[2024-12-21] MEDS ORDERED: NON-FORMULARY ITEM (Lisinopril/Hydrochlorothiazide [Lisinopril-Hctz 20-12.5 Mg Tab] 1 EACH PO SCH (10:00)
[2024-12-21] MEDS ORDERED: NON-FORMULARY ITEM (Insulin Glargine,Hum.Rec.Anlog [Lantus Solostar] 100 UNIT/ML Ml) SQ SCH (10:00)
[2024-12-21] MEDS: PROVENTIL 2.5 MG/3 ML NEB IH PRN (15:20)
[2024-12-21] MEDS: Miralax Powder 17GM PACKET PO PRN (15:20)
[2024-12-21 16:00] LABS: Pathologist Review SEE SEPARATE REPORT
[2024-12-21] MEDS: Lasix 40 MG/4 ML IV SCH (18:26)
[2024-12-21 19:16] LABS: IFOB TEST RESULTS NEGATIVE (NEGATIVE)
[2024-12-21] MEDS: Cyclobenzaprine 10 MG PO SCH (21:11)
[2024-12-21] MEDS: ZOCOR 20MG PO SCH (21:11)
[2024-12-21] MEDS: ECOTRIN 81 MG PO SCH (21:12)
[2024-12-21] MEDS: Tricor 145 MG PO SCH (21:12)
[2024-12-21] MEDS ORDERED: LIPITOR 40MG PO SCH (22:00)
[2024-12-21] MEDS ORDERED: FEXOFENADINE HCL 180 MG PO SCH (22:00)
--- NOTE | 2024-12-22 05:06 | PCM.NOTE ---
Date and Time: 12/22/24 0506 Subjective Assessment: HPI: Mr. Forte, a 69-year-old male with a history of coronary artery disease, type 2 diabetes mellitus, hypertension, chronic obstructive pulmonary disease, and obstructive sleep apnea on CPAP, presented with progressive exertional dyspnea over the past 2.5 weeks. His symptoms are possibly multifactorial, with potential contributions from atrial fibrillation, chronic anemia, and underlying congestive heart failure. He was recently diagnosed with atrial fibrillation and briefly initiated on anticoagulation, which was subsequently discontinued due to newly identified anemia, with hemoglobin declining from 12.8 in September to 7.9. Iron studies revealed an iron saturation of 31%, with negative occult stool testing. BNP remains elevated at 1490, and metabolic panel abnormalities, including a CO2 level of 17, prompted the initiation of bicarbonate therapy. Imaging demonstrated cardiomegaly with small bilateral pleural effusions, suggestive of possible cardiac decompensation, though no overt signs of volume overload were present. He received diuresis with Lasix in the emergency department, and an echocardiogram is pending to assess for cardiac dysfunction. His diabetes regimen was adjusted with a reduction in Lantus, while his COPD and CHIQUI remain stable under current management. He remains hemodynamically stable, requiring intermittent supplemental oxygen with exertion. Given the ongoing anemia, a transfusion of one unit of PRBC is planned. Anticoagulation remains deferred pending further hematologic evaluation. 12/21/24: Met with patient bedside. Endorses continued exertional dyspnea, with an unclear etiology. Dyspnea possibly related to atrial fibrillation, chronic anemia, or congestive heart failure. An echocardiogram is pending for further cardiac evaluation. Laboratory findings reveal hemoglobin of 8 with an iron saturation of 31%, warranting stool occult blood testing to assess for potential GI blood loss. BNP remains elevated at 1490, suggesting persistent cardiac strain. The plan includes ongoing diuresis for volume management, further anemia workup, and a respiratory therapy-administered walk test to evaluate the need for home oxygen. 12/22/24: No overnight events noted. Patient reports dyspnea improved, and lung sounds with improved aeration on auscultation. He remains on room air and maintained an SpO2 of 94% during a walk test. His hemoglobin is still low at 7.9, but there are no signs of active bleeding, with negative occult stool tests and no swelling on exam. Telemetry has not shown any episodes of atrial fibrillation during his hospital stay. His dyspnea could be due to a combination of factors, including anemia and underlying heart or lung conditions. An echocardiogram is still pending, and he will continue diuresis to help manage fluid levels. 1 unit of LPRBC has been ordered and planned for tomorrow. A hematology referral is planned for further evaluation of his anemia discussed with patient and he is agreeable to see Dr. Allen. - Review of Systems Constitutional: Weakness Eyes: No Symptoms Ears, Nose, & Throat: No Symptoms Respiratory: Short Of Breath Cardiac: Edema Abdominal/Gastrointestinal: No Symptoms Genitourinary Symptoms: No Symptoms Musculoskeletal: No Symptoms Skin: No Symptoms Neurological: No Symptoms Psychological: No Symptoms Endocrine: No Symptoms Hematologic/Lymphatic: Anemia Immunological/Allergic: No Symptoms Objective Exam General Appearance: no apparent distress Neurologic Exam: alert, oriented x 3, cooperative Skin Exam: normal color Eye Exam: PERRL Ears, Nose, Throat Exam: normal ENT inspection Neck Exam: normal inspection Respiratory Exam: diminished breath sounds Cardiovascular Exam: regular rate/rhythm, normal heart sounds Gastrointestinal/Abdomen Exam: soft, normal bowel sounds Extremity Exam: normal inspection Back Exam: normal inspection Male Genitalia Exam: deferred Rectal Exam: deferred Objective Data Vital Signs: Vital Signs - 24 hr Temp Pulse Resp BP BP Pulse Ox 12/22/24 00:00 83 18 12/21/24 20:00 97.0 F 97 H 16 103/55 94 L 12/21/24 18:25 101 H 16 95 12/21/24 16:00 97.5 F 95 H 18 123/73 94 L 12/21/24 15:22 78 18 94 L 12/21/24 12:00 96.9 F 93 H 22 116/65 92 L 12/21/24 07:56 97.3 F 89 20 123/81 92 L 12/21/24 06:30 86 18 93 L Pain Assessment - Last Documented Pain Intensity 8 Pain Scale Used 0-10 Pain Scale Intake and Output: Intake & Output 12/19/24 12/20/24 12/21/24 12/22/24 11:59 11:59 11:59 11:59 Intake Total 240 600 Balance 240 600 Weight 132.6 kg Lab Results: Lab Results-Last 24 Hours 12/20/24 12/21/24 12/21/24 Range/Units 13:20 05:01 05:01 WBC 6.8 (4.23-9.07) x10^3/uL RBC 2.80 L (4.63-6.08) x10^6/uL Hgb 8.0 L (13.7-17.5) g/dL Hct 25.0 L (40.1-51.0) % MCV 89.3 (79.0-92.2) fL MCH 28.6 (25.7-32.2) pg MCHC 32.0 L (32.3-36.5) g/dL RDW 22.0 H (11.6-14.4) % Plt Count 116 L (163-337) x10^3/uL MPV 10.4 (9.4-12.4) fL Reticulocyte % (Auto) 1.5 (0.51-1.81) % Smear Path Review SEE SEPARATE REPORT Absolute Retic 0.0414 (0.026-0.095) x10^6/uL Retic Hgb Content 32.5 (28-36.6) pg Sodium 137 (135-145) mmol/L Potassium 3.6 (3.5-5.1) mmol/L Chloride 104 (98-107) mmol/L Carbon Dioxide 19 L (22-30) mmol/L Anion Gap 17.2 H (5-15) MEQ/L BUN 18 (9-20) mg/dL Creatinine 1.19 (0.66-1.25) mg/dL Estimated GFR 67.0 ML/MIN Glucose 113 H (74-106) mg/dL POC Glucometer (74 to 106) mg/dL Hemoglobin A1c (4.5-6.0) % Calcium 9.5 (8.4-10.2) mg/dL Iron (49-181) ug/dL TIBC (261-497) ug/dL Iron Saturation (20-39) % Ferritin 44.3 (17.9-464) ng/mL Stl Occult Blood (IFOB) (NEGATIVE) 12/21/24 12/21/24 12/21/24 Range/Units 05:01 05:01 07:03 WBC (4.23-9.07) x10^3/uL RBC (4.63-6.08) x10^6/uL Hgb (13.7-17.5) g/dL Hct (40.1-51.0) % MCV (79.0-92.2) fL MCH (25.7-32.2) pg MCHC (32.3-36.5) g/dL RDW (11.6-14.4) % Plt Count (163-337) x10^3/uL MPV (9.4-12.4) fL Reticulocyte % (Auto) (0.51-1.81) % Smear Path Review Absolute Retic (0.026-0.095) x10^6/uL Retic Hgb Content (28-36.6) pg Sodium (135-145) mmol/L Potassium (3.5-5.1) mmol/L Chloride (98-107) mmol/L Carbon Dioxide (22-30) mmol/L Anion Gap (5-15) MEQ/L BUN (9-20) mg/dL Creatinine (0.66-1.25) mg/dL Estimated GFR ML/MIN Glucose (74-106) mg/dL POC Glucometer 79 (74 to 106) mg/dL Hemoglobin A1c 6.20 H (4.5-6.0) % Calcium (8.4-10.2) mg/dL Iron 97 (49-181) ug/dL TIBC 313 (261-497) ug/dL Iron Saturation 31 (20-39) % Ferritin (17.9-464) ng/mL Stl Occult Blood (IFOB) (NEGATIVE) 12/21/24 12/21/24 12/21/24 Range/Units 11:17 18:51 21:09 WBC (4.23-9.07) x10^3/uL RBC (4.63-6.08) x10^6/uL Hgb (13.7-17.5) g/dL Hct (40.1-51.0) % MCV (79.0-92.2) fL MCH (25.7-32.2) pg MCHC (32.3-36.5) g/dL RDW (11.6-14.4) % Plt Count (163-337) x10^3/uL MPV (9.4-12.4) fL Reticulocyte % (Auto) (0.51-1.81) % Smear Path Review Absolute Retic (0.026-0.095) x10^6/uL Retic Hgb Content (28-36.6) pg Sodium (135-145) mmol/L Potassium (3.5-5.1) mmol/L Chloride (98-107) mmol/L Carbon Dioxide (22-30) mmol/L Anion Gap (5-15) MEQ/L BUN (9-20) mg/dL Creatinine (0.66-1.25) mg/dL Estimated GFR ML/MIN Glucose (74-106) mg/dL POC Glucometer 128 H 160 H (74 to 106) mg/dL Hemoglobin A1c (4.5-6.0) % Calcium (8.4-10.2) mg/dL Iron (49-181) ug/dL TIBC (261-497) ug/dL Iron Saturation (20-39) % Ferritin (17.9-464) ng/mL Stl Occult Blood (IFOB) NEGATIVE (NEGATIVE) Radiology Exams: Radiology Procedures Category Date Time Status CHEST 1 VIEW (PORTABLE) Stat Exams 12/20/24 13:15 Completed CHEST WITH CONTRAST [CT] Stat Exams 12/20/24 14:00 Completed CTA ABDOMEN W AND/OR WO CONTRA [CT] Stat Exams 12/20/24 14:01 Completed ECHO W/2D AND DOPPLER [US] Routine Exams 12/21/24 08:00 Taken Multi-Disciplinary Progress Notes: Multi-Disciplinary Progress Notes 12/21/24 15:18 Respiratory Note by Tobin Iqbal PT WALKED FOR 5-6 MINUTES WITH NO OXYGEN ON AND PT'S O2 SATURATION WAS 94% THROUGHOUT THE ENTIRE WALK. PT DOES NOT MEET THE REQUIREMENTS FOR HOME O2. Initialized on 12/21/24 15:18 - END OF NOTE Assessment/Plan (1) Dyspnea Current Visit: Yes Status: Acute Assessment & Plan: -CXR reviewed with cardiomegaly and small bilateral effusions, possible cardiac decompensation/CHF -CT chest reviewed again wit new cardiomegaly and tiny right effusion. Chronic findings including pulmonary fibrosis/scarring, arteriosclerotic disease, chronic bony findings, and old granulomatous disease. -CT abdomen with minimally worsening arteriosclerotic aorta with minimally enlarging distal AAA as detailed -Received Lasix in ED - continue -echo -Supplemental oxygen to maintain spo2 goal > 90% -tele -DuoNebs prn -Continue CPAP at night for CHIQUI -Walk test 12/22: -Does not qualify for home oxygen- spo2 maintained at 94% on walk test -continue diuresis Code(s): R06.00 - DYSPNEA, UNSPECIFIED (2) Anemia Current Visit: Yes Status: Acute Assessment & Plan: -Iron labs with iron sat at 31% -GI follow up -Hgb reviewed at 8.0- trend -Occult stools 12/22: -Occult stools negative -Hgb reviewed at 7.9- will order 1 unit LPRBC - this has to be ordered from another facility due to antibodies- will be in tomorrow morning -Hematology follow up as OP with Dr. Allen -Hold ASA Code(s): D64.9 - ANEMIA, UNSPECIFIED (3) Type 2 diabetes mellitus Current Visit: Yes Status: Acute Assessment & Plan: Continue home Lantus BID, but decrease to 40 units HD sliding scale insulin A1c 6.20 ADA diet (4) COPD (chronic obstructive pulmonary disease) Current Visit: Yes Status: Acute Assessment & Plan: -see dyspnea (5) CHIQUI on CPAP Current Visit: Yes Status: Acute Assessment & Plan: -continue CPAP Code(s): G47.33 - OBSTRUCTIVE SLEEP APNEA (ADULT) (PEDIATRIC) (6) CAD (coronary artery disease) Current Visit: Yes Status: Acute Assessment & Plan: Continue home aspirin 81, Plavix 75, atorvastatin 40 QHS, Toprol-XL 25 BID Code(s): I25.10 - ATHSCL HEART DISEASE OF [place] CORONARY ARTERY W/O ANG PCTRS (7) Atrial fibrillation Current Visit: Yes Status: Acute Assessment & Plan: appears to be paroxysmal, as patient is currently in normal sinus rhythm. But diagnosed in Dr. Smith's office last week. Possibly related to his dyspnea, although typically this is mitigated more by CHF from lack of atrial kick in by a direct effect from the A-fib. He was briefly started anticoagulation but was stopped due to the finding of anemia as above. Check echo Monitor on telemetry 12/22: -Echo pending CODE STATUS: Full code Prophylaxis: Lovenox 40 mg Diet: Diabetic Dispo: home in the next 24 to 48 ho Code(s): R06.00 - DYSPNEA, UNSPECIFIED (2) Anemia Current Visit: Yes Status: Acute Code(s): D64.9 - ANEMIA, UNSPECIFIED (3) Type 2 diabetes mellitus Current Visit: Yes Status: Acute (4) COPD (chronic obstructive pulmonary disease) Current Visit: Yes Status: Acute (5) CHIQUI on CPAP Current Visit: Yes Status: Acute Code(s): G47.33 - OBSTRUCTIVE SLEEP APNEA (ADULT) (PEDIATRIC) (6) CAD (coronary artery disease) Current Visit: Yes Status: Acute Code(s): I25.10 - ATHSCL HEART DISEASE OF [place] CORONARY ARTERY W/O ANG PCTRS (7) Atrial fibrillation Current Visit: Yes Status: Acute Code(s): I48.91 - UNSPECIFIED ATRIAL FIBRILLATION
[2024-12-22 06:57] LABS: Hematocrit 24.6 % (40.1-51.0); Hemoglobin 7.9 g/dL (13.7-17.5); Mean Cell Volume 89.5 fL (79.0-92.2); Mean Corpuscular Hemoglobin 28.7 pg (25.7-32.2); Mean Corpuscular Hgb Concent. 32.1 g/dL (32.3-36.5); Mean Platelet Volume 10.2 fL (9.4-12.4); Platelet Count 110 x10^3/uL (163-337); Red Blood Count 2.75 x10^6/uL (4.63-6.08); Red Cell Distribution Width 21.8 % (11.6-14.4); White Blood Count 6.9 x10^3/uL (4.23-9.07)
[2024-12-22 07:14] LABS: ALBUMIN 3.2 g/dL (3.5-5.0); ANION GAP 18.9 MEQ/L (5-15); BILIRUBIN,TOTAL 0.9 mg/dL (0.2-1.3); Calcium 9.3 mg/dL (8.4-10.2); Creatinine 1 1.04 mg/dL (0.66-1.25); EST GLOMERULAR FILTRATION RATE 78.7 ML/MIN; Potassium 3.7 mmol/L (3.5-5.1)
[2024-12-22 08:29] LABS: BAND 1 % (0.0-2.0); Lymphocytes 29 % (21.8-53.1); Monocyte 11 % (5.3-12.2); Neutrophils 59 % (34.0-67.9); Total Cells Counted 100
[2024-12-22 08:30] LABS: ANISOCYTOSIS 1+; Platelet Estimate DECREASED (NORMAL); Rouleau 3+
[2024-12-22 08:31] LABS: Hypochromia 1+
[2024-12-22] MEDS: SODIUM BICARBONATE PO SCH (10:18)
[2024-12-22] MEDS ORDERED: Sodium Chloride 0.9% 1000 ML 1,000 ML IV SCH (12:00)
[2024-12-22] MEDS: HUMALOG SQ PRN (12:01)
[2024-12-22] MEDS: MAGNESIUM SULF 2 G/50 ML BAG 2 GM/50 ML PIGGYBACK IV ONE (15:00)
[2024-12-22] MEDS: NORCO 5/325 MG PO PRN (15:00)
[2024-12-22] MEDS: Lasix 40 MG/4 ML IV SCH (16:09)
[2024-12-22] MEDS: Lasix 40 MG/4 ML IV ONE (16:16)
[2024-12-22 16:54] LABS: ANION GAP 19.4 MEQ/L (5-15); Creatinine 1 1.23 mg/dL (0.66-1.25); EST GLOMERULAR FILTRATION RATE 64.4 ML/MIN; Potassium 3.6 mmol/L (3.5-5.1)
[2024-12-22] MEDS: TOPIRAMATE PO PRN (19:36)
[2024-12-23 02:16] LABS: Antibody Screen NEGATIVE (NEGATIVE); RH TYPING POSITIVE
[2024-12-23 02:19] LABS: ABO TYPING A
[2024-12-23 02:29] LABS: CROSS MATCH (PRBC) COMPATIBLE (COMPATIBLE)
[2024-12-23 04:47] LABS: Hematocrit 24.6 % (40.1-51.0); Hemoglobin 7.9 g/dL (13.7-17.5); Mean Cell Volume 89.1 fL (79.0-92.2); Mean Corpuscular Hemoglobin 28.6 pg (25.7-32.2); Mean Corpuscular Hgb Concent. 32.1 g/dL (32.3-36.5); Mean Platelet Volume 10.4 fL (9.4-12.4); Platelet Count 111 x10^3/uL (163-337); Red Blood Count 2.76 x10^6/uL (4.63-6.08); Red Cell Distribution Width 22.3 % (11.6-14.4); White Blood Count 7.5 x10^3/uL (4.23-9.07)
[2024-12-23 05:04] LABS: ALBUMIN 3.2 g/dL (3.5-5.0); ANION GAP 16.5 MEQ/L (5-15); BILIRUBIN,TOTAL 0.8 mg/dL (0.2-1.3); Creatinine 1 1.34 mg/dL (0.66-1.25); EST GLOMERULAR FILTRATION RATE 58.1 ML/MIN; MAGNESIUM 1.5 mg/dL (1.6-2.3); Potassium 3.4 mmol/L (3.5-5.1)
[2024-12-23 05:10] LABS: Total Protein 11.9 g/dL (6.3-8.2)
--- NOTE | 2024-12-23 05:23 | PCM.DS ---
Discharge Summary Date of Admission: 12/20/24 20:07 Date of Discharge: 12/23/24 Admitting Physician: MEGAN CHAO MD Primary Care Provider: VIVEK SMITH PETRA Allergies Allergies codeine Adverse Reaction (Mild, Verified 12/20/24 13:01) hyperactive/nausea morphine Adverse Reaction (Mild, Verified 12/20/24 13:01) Itching hydromorphone HCl [From Dilaudid] Adverse Reaction (Verified 12/20/24 13:01) ITCH found it caused his nose to itch and was then given with benadryl without problems Hospital Summary - Hospital Course Hospital Course: Mr. Forte, a 69-year-old male with a history of coronary artery disease, type 2 diabetes mellitus, hypertension, chronic obstructive pulmonary disease, and obstructive sleep apnea on CPAP, presented with progressive exertional dyspnea over the past 2.5 weeks. His symptoms are possibly multifactorial, with poten tial contributions from atrial fibrillation, chronic anemia, and underlying congestive heart failure. He was recently diagnosed with atrial fibrillation and briefly initiated on anticoagulation, which was subsequently discontinued due to newly identified anemia, with hemoglobin declining from 12.8 in September to 7.9. Iron studies revealed an iron saturation of 31%, with negative occult stool testing. BNP remains elevated at 1490, and metabolic panel abnormalities, including a CO2 level of 17, prompted the initiation of bicarbonate therapy which is now resolved. Imaging demonstrated cardiomegaly with small bilateral pleural effusions, suggestive of possible cardiac decompensation, though no o vert signs of volume overload were present. He received diuresis with Lasix in the emergency department. Bouts of AFIB on tele. Echo with EF at 55% with findings of a moderately enlarged left ventricle with mild thickening, likely due to long-term pressure overload. The left and right atria are mildly enlarged, which may be related to atrial fibrillation and increased heart pressure. EF 55% with no signs of previous heart attacks. Diastolic dysfunction couldnt be fully assessed due to atrial fibrillation, but the elevated central venous pressure (right atrial pressure of 15 mmHg) suggests some degree of fluid overload or heart strain. The right ventricle is normal in size and function, and the heart valves are intact with no major issues. No pericardial effusion was found, but pulmonary artery pressure could not be measured. His diabetes regimen was adjusted with a reduction in Lantus, while his COPD and CHIQUI remain stable under current management. His dyspnea could be due to a combination of factors, including anemia and underlying heart or lung conditions. He remains hemodynamically stable. Given the ongoing anemia, a transfusion of one unit of PRBC is planned. Anticoagulation remains deferred pending further hematologic evaluation as OP. Advised follow up with cardiology. He will receive electrolyte replenishment prior to discharge and 1 unit of blood. Discharge Note New Diagnosis:Dyspnea New Medications: Lasix 20mg daily/ potassium chloride Follow Up: cardiology/pcp/hematology I spent 35 minutes [id number] with the patient on the day of discharge performing discharge exam, discussing hospital stay and discharge instructions with patient and caregivers, preparation of discharge records, prescriptions & referral forms and addressing any questions/concerns the patient had as documented above. - Vitals & Intake/Output Vital Signs: Vital Signs Temperature 96.9 F 12/23/24 00:00 Pulse Rate 82 12/23/24 04:00 Respiratory Rate 14 12/23/24 04:00 Blood Pressure 97/59 12/23/24 00:00 O2 Sat by Pulse Oximetry 95 12/23/24 00:00 Intake & Output: Intake & Output 12/20/24 12/21/24 12/22/24 12/23/24 11:59 11:59 11:59 11:59 Intake Total 240 840 780 Balance 240 840 780 Weight 132.6 kg 132.6 kg - Lab Result Diagrams: 12/23/24 04:40 12/23/24 04:40 Lab Results-Last 24 Hrs: Lab Results-Last 24 Hours 12/22/24 12/22/24 12/22/24 Range/Units 04:27 04:27 06:00 WBC 6.9 (4.23-9.07) x10^3/uL RBC 2.75 L (4.63-6.08) x10^6/uL Hgb 7.9 L (13.7-17.5) g/dL Hct 24.6 L (40.1-51.0) % MCV 89.5 (79.0-92.2) fL MCH 28.7 (25.7-32.2) pg MCHC 32.1 L (32.3-36.5) g/dL RDW 21.8 H (11.6-14.4) % Plt Count 110 L (163-337) x10^3/uL MPV 10.2 (9.4-12.4) fL Segmented Neutrophils 59 (34.0-67.9) % Band Neutrophils 1 (0.0-2.0) % Lymphocytes (Manual) 29 (21.8-53.1) % Monocytes (Manual) 11 (5.3-12.2) % Hypochromia 1+ Platelet Estimate DECREASED (NORMAL) RBC Morphology ABNORMAL Anisocytosis 1+ Rouleaux 3+ Sodium 138 (135-145) mmol/L Potassium 3.7 (3.5-5.1) mmol/L Chloride 105 (98-107) mmol/L Carbon Dioxide 17 L (22-30) mmol/L Anion Gap 18.9 H (5-15) MEQ/L BUN 19 (9-20) mg/dL Creatinine 1.04 (0.66-1.25) mg/dL Estimated GFR 78.7 ML/MIN Glucose 99 (74-106) mg/dL POC Glucometer (74 to 106) mg/dL Calcium 9.3 (8.4-10.2) mg/dL Magnesium 1.4 L (1.6-2.3) mg/dL Total Bilirubin 0.90 (0.2-1.3) mg/dL AST 47 (17-59) U/L ALT 31 (0-50) U/L Alkaline Phosphatase 53 (38-126) U/L Serum Total Protein 11.0 H (6.3-8.2) g/dL Albumin 3.2 L (3.5-5.0) g/dL ABO Group Rh Factor Antibody Screen (NEGATIVE) Crossmatch (COMPATIBLE) 12/22/24 12/22/24 12/22/24 Range/Units 09:37 10:59 11:17 WBC (4.23-9.07) x10^3/uL RBC (4.63-6.08) x10^6/uL Hgb (13.7-17.5) g/dL Hct (40.1-51.0) % MCV (79.0-92.2) fL MCH (25.7-32.2) pg MCHC (32.3-36.5) g/dL RDW (11.6-14.4) % Plt Count (163-337) x10^3/uL MPV (9.4-12.4) fL Segmented Neutrophils (34.0-67.9) % Band Neutrophils (0.0-2.0) % Lymphocytes (Manual) (21.8-53.1) % Monocytes (Manual) (5.3-12.2) % Hypochromia Platelet Estimate (NORMAL) RBC Morphology Anisocytosis Rouleaux Sodium (135-145) mmol/L Potassium (3.5-5.1) mmol/L Chloride (98-107) mmol/L Carbon Dioxide (22-30) mmol/L Anion Gap (5-15) MEQ/L BUN (9-20) mg/dL Creatinine (0.66-1.25) mg/dL Estimated GFR ML/MIN Glucose (74-106) mg/dL POC Glucometer 155 H (74 to 106) mg/dL Calcium (8.4-10.2) mg/dL Magnesium (1.6-2.3) mg/dL Total Bilirubin (0.2-1.3) mg/dL AST (17-59) U/L ALT (0-50) U/L Alkaline Phosphatase (38-126) U/L Serum Total Protein (6.3-8.2) g/dL Albumin (3.5-5.0) g/dL ABO Group A Rh Factor POSITIVE Antibody Screen NEGATIVE (NEGATIVE) Crossmatch COMPATIBLE (COMPATIBLE) 12/22/24 12/23/24 Range/Units 16:20 04:40 WBC 7.5 (4.23-9.07) x10^3/uL RBC 2.76 L (4.63-6.08) x10^6/uL Hgb 7.9 L (13.7-17.5) g/dL Hct 24.6 L (40.1-51.0) % MCV 89.1 (79.0-92.2) fL MCH 28.6 (25.7-32.2) pg MCHC 32.1 L (32.3-36.5) g/dL RDW 22.3 H (11.6-14.4) % Plt Count 111 L (163-337) x10^3/uL MPV 10.4 (9.4-12.4) fL Segmented Neutrophils (34.0-67.9) % Band Neutrophils (0.0-2.0) % Lymphocytes (Manual) (21.8-53.1) % Monocytes (Manual) (5.3-12.2) % Hypochromia Platelet Estimate (NORMAL) RBC Morphology Anisocytosis Rouleaux Sodium 137 (135-145) mmol/L Potassium 3.6 (3.5-5.1) mmol/L Chloride 103 (98-107) mmol/L Carbon Dioxide 18 L (22-30) mmol/L Anion Gap 19.4 H (5-15) MEQ/L BUN 21 H (9-20) mg/dL Creatinine 1.23 (0.66-1.25) mg/dL Estimated GFR 64.4 ML/MIN Glucose 140 H (74-106) mg/dL POC Glucometer (74 to 106) mg/dL Calcium 9.0 (8.4-10.2) mg/dL Magnesium (1.6-2.3) mg/dL Total Bilirubin (0.2-1.3) mg/dL AST (17-59) U/L ALT (0-50) U/L Alkaline Phosphatase (38-126) U/L Serum Total Protein (6.3-8.2) g/dL Albumin (3.5-5.0) g/dL ABO Group Rh Factor Antibody Screen (NEGATIVE) Crossmatch (COMPATIBLE) Micro Results-Entire Visit: Microbiology 12/20/24 13:51 Blood Culture - Preliminary Blood 12/20/24 13:20 Blood Culture - Preliminary Blood Accuchecks Date 12/23/24 Date 12/22/24 Date 12/22/24 Date 12/22/24 Time 21:00 - Radiology Exams Ordered Rad Exams-Entire Visit: Radiology Procedures Category Date Time Status ECHO W/2D AND DOPPLER [US] Routine Exams 12/21/24 08:00 Taken - Procedures and Test Procedures and Tests throughout Hospitalization: Therapy Orders & Screens 12/20/24 20:54 Respiratory Therapy Assessment DAILY Comment: Diagnosis: Pulmonary congestion, elevated BNP 12/20/24 20:56 Respiratory MDI BID Comment: Diagnosis: Pulmonary congestion, elevated BNP 12/20/24 21:00 BiPap/CPAP ROUTINE Comment: home CPAP per home settings Diagnosis: Pulmonary congestion, elevated BNP 12/21/24 13:51 Qualify for Home Oxygen TODAY Comment: Diagnosis: shortness of breath Discharge Exam General Appearance: no apparent distress Neurologic Exam: alert, oriented x 3, sensation nml Eye Exam: PERRL Ears, Nose, Throat Exam: normal ENT inspection Neck Exam: normal inspection Respiratory Exam: normal breath sounds, lungs clear Cardiovascular Exam: irregular Gastrointestinal/Abdomen Exam: soft, normal bowel sounds Male Genitalia Exam: deferred Rectal Exam: deferred Back Exam: normal inspection Extremity Exam: normal inspection Skin Exam: normal color Final Diagnosis/Problem List - Final Discharge Diagnosis/Problem (1) Dyspnea Current Visit: Yes Status: Acute Assessment & Plan: -CXR reviewed with cardiomegaly and small bilateral effusions, possible cardiac decompensation/CHF -CT chest reviewed again wit new cardiomegaly and tiny right effusion. Chronic findings including pulmonary fibrosis/scarring, arteriosclerotic disease, chronic bony findings, and old granulomatous disease. -CT abdomen with minimally worsening arteriosclerotic aorta with minimally enlarging distal AAA as detailed -Received Lasix in ED - continue -echo -Supplemental oxygen to maintain spo2 goal > 90% -tele -DuoNebs prn -Continue CPAP at night for CHIQUI -Walk test 12/22: -Does not qualify for home oxygen- spo2 maintained at 94% on walk test -continue diuresis 12/23: -Continue OP diuresis - Lasix 20mg daily Code(s): R06.00 - DYSPNEA, UNSPECIFIED (2) Anemia Current Visit: Yes Status: Acute Assessment & Plan: -Iron labs with iron sat at 31% -GI follow up -Hgb reviewed at 8.0- trend -Occult stools 12/22: -Occult stools negative -Hgb reviewed at 7.9- will order 1 unit LPRBC - this has to be ordered from another facility due to antibodies- will be in tomorrow morning -Hematology follow up as OP with Dr. Allen -Hold ASA 12/23: -Hold ASA/anticoag until follow up with cards -1 unit LPRBC today - can discharge home after with hematology follow up Code(s): D64.9 - ANEMIA, UNSPECIFIED (3) Type 2 diabetes mellitus Current Visit: Yes Status: Acute Assessment & Plan: Continue home Lantus BID, but decrease to 40 units HD sliding scale insulin A1c 6.20 ADA diet (4) COPD (chronic obstructive pulmonary disease) Current Visit: Yes Status: Acute Assessment & Plan: -see dyspnea (5) CHIQUI on CPAP Current Visit: Yes Status: Acute Assessment & Plan: -continue CPAP Code(s): G47.33 - OBSTRUCTIVE SLEEP APNEA (ADULT) (PEDIATRIC) (6) CAD (coronary artery disease) Current Visit: Yes Status: Acute Assessment & Plan: Continue home aspirin 81, Plavix 75, atorvastatin 40 QHS, Toprol-XL 25 BID Code(s): I25.10 - ATHSCL HEART DISEASE OF [place] CORONARY ARTERY W/O ANG PCTRS (7) Atrial fibrillation Current Visit: Yes Status: Acute Assessment & Plan: appears to be paroxysmal, as patient is currently in normal sinus rhythm. But diagnosed in Dr. Smith's office last week. Possibly related to his dyspnea, although typically this is mitigated more by CHF from lack of atrial kick in by a direct effect from the A-fib. He was briefly started anticoagulation but was stopped due to the finding of anemia as above. Check echo Monitor on telemetry 12/22: -Echo pending 12/23: -Echo as stated -Follow up with cards OP -Cards to determine anticoagulation Hypokalemia -Potassium level reviewed at 3.4- Replenish per protocol - will discharge with daily supplementation Hypomagnesemia - Mag level reviewed at 1.5-replenish Code(s): R06.00 - DYSPNEA, UNSPECIFIED (2) Anemia Current Visit: Yes Status: Chronic Code(s): D64.9 - ANEMIA, UNSPECIFIED (3) Type 2 diabetes mellitus Current Visit: Yes Status: Chronic (4) COPD (chronic obstructive pulmonary disease) Current Visit: Yes Status: Chronic (5) CHIQUI on CPAP Current Visit: Yes Status: Chronic Code(s): G47.33 - OBSTRUCTIVE SLEEP APNEA (ADULT) (PEDIATRIC) (6) CAD (coronary artery disease) Current Visit: Yes Status: Chronic Code(s): I25.10 - ATHSCL HEART DISEASE OF [place] CORONARY ARTERY W/O ANG PCTRS (7) Atrial fibrillation Current Visit: Yes Status: Chronic Code(s): I48.91 - UNSPECIFIED ATRIAL FIBRILLATION - Discharge Discharge Date: 12/23/24 Disposition: Home, Self-Care Condition: Stable Prescriptions: New Potassium Chloride Tab* [Klor Con] 20 meq PO DAILY 30 Days #30 tablet Furosemide 20 mg [Lasix 20 mg] 20 mg PO DAILY 30 Days #30 tablet Continue Magnesium Oxide 400 mg [Mag-Ox 400] 250 mg PO DAILY Multivitamin [Men's Multi-Vitamin] 1 each PO DAILY Metoprolol Succinate 25 mg Xl* [Toprol-Xl 25MG Tablets] 25 mg PO BID Fenofibrate,Micronized 145 mg* [Tricor 145 MG] 145 mg PO HS Clopidogrel Bisulfate [PLAVIX Tablet] 75 mg PO DAILY Atorvastatin Calcium [Lipitor] 40 mg PO HS Lisinopril/Hydrochlorothiazide [Lisinopril-Hctz 20-12.5 mg Tab] 1 each PO BID Fexofenadine HCl [Saba] 180 mg PO HS Metformin HCl 500 mg [Glucophage 500 MG] 500 mg PO BID Glipizide 5 mg [Glucotrol 5 MG] 5 mg PO BID Vitamin E 400 Units [Vitamin E 400 UNIT SOFTGEL] 400 unit PO DAILY PANTOPRAZOLE 40 mg Tablet [Protonix 40MG Tablet] 40 mg PO BID Nitroglycerin 0.4 mg Tablet [Nitrostat 0.4 MG Tablet] 0.4 mg SL UD [place]-3 Fatty Acids/Fish Oil [Fish Oil 1,000 mg Capsule] 1 ea PO DAILY ALPRAZolam 1 MG [Xanax 1 mg] 1 mg PO TID PRN PRN PRN Reason: Anxiety Cyclobenzaprine HCl 10 mg [Cyclobenzaprine 10 MG] 10 mg PO HS Insulin Glargine,Hum.rec.anlog [Lantus Solostar] 60 units SQ BID Fluticasone Propion/Salmeterol [Wixela 250-50 Inhub] 2 puff IH BID Albuterol Sulfate [Proair Hfa] 1 puff IH DAILY PRN PRN PRN Reason: Shortness Of Breath Ergocalciferol (Vitamin D2) [Vitamin D2] 1 tab PO WEEKLY Topiramate [Topamax] 25 mg PO TID PRN PRN Reason: tremors Cyanocobalamin 500 Mcg [Vitamin B-12 500 MCG] 1,000 mcg PO DAILY Zinc 50 mg PO DAILY Ascorbic Acid [Vitamin C] 1,000 mg PO DAILY Cider Vinegar [Apple Cider Vinegar] 0 mg PO DAILY Ubidecarenone [Co Q-10] 200 mg PO DAILY Discontinued Aspirin [Aspirin EC] 81 mg PO HS Follow up with: ABDOULAYE STEVENS, PLUSH BRUSHER [[employer] STAFF] - 12/31/24 10:00 am (FOR )
[2024-12-23] MEDS ORDERED: Klor Con PO SCH (05:30)
[2024-12-23 05:36] VITALS: RESP 16
[2024-12-23] MEDS: MAGNESIUM SULF 2 G/50 ML BAG 2 GM/50 ML PIGGYBACK IV ONE ×2 (07:33→08:31)
[2024-12-23] MEDS: Klor Con PO SCH ×2 (07:34→12:27)
[2024-12-23 08:44] LABS: Eosinophil 4 % (0.8-7.0); Lymphocytes 30 % (21.8-53.1); Monocyte 10 % (5.3-12.2); Neutrophils 56 % (34.0-67.9); Platelet Estimate DECREASED (NORMAL); Rouleau 3+; Total Cells Counted 100
[2024-12-23 08:45] LABS: ANISOCYTOSIS 1+
[2024-12-23] MEDS ORDERED: Sodium Chloride 0.9% 1000 ML 1,000 ML ONE (09:04)
[2024-12-23] MEDS: Sodium Chloride 0.9% 1000 ML 1,000 ML IV SCH (09:39)
--- NOTE | 2024-12-23 10:47 | PCM.DS ---
Discharge Summary Date of Admission: 12/20/24 20:07 Date of Discharge: 12/23/24 Admitting Physician: MEGAN CHAO MD Primary Care Provider: VIVEK DE LA FUENTE Allergies Allergies codeine Adverse Reaction (Mild, Verified 12/20/24 13:01) hyperactive/nausea morphine Adverse Reaction (Mild, Verified 12/20/24 13:01) Itching hydromorphone HCl [From Dilaudid] Adverse Reaction (Verified 12/20/24 13:01) ITCH found it caused his nose to itch and was then given with benadryl without problems Hospital Summary - Vitals & Intake/Output Vital Signs: Vital Signs Temperature 98.1 F 12/23/24 07:25 Pulse Rate 81 12/23/24 07:25 Respiratory Rate 16 12/23/24 07:25 Blood Pressure 116/60 12/23/24 07:25 O2 Sat by Pulse Oximetry 95 12/23/24 07:25 Intake & Output: Intake & Output 12/20/24 12/21/24 12/22/24 12/23/24 11:59 11:59 11:59 11:59 Intake Total 904 074 6164 Output Total 400 Balance 240 840 780 Weight 132.6 kg 132.6 kg 132.8 kg - Lab Result Diagrams: 12/23/24 04:40 12/23/24 04:40 Lab Results-Last 24 Hrs: Lab Results-Last 24 Hours 12/22/24 12/22/24 12/22/24 Range/Units 09:37 10:59 11:17 WBC (4.23-9.07) x10^3/uL RBC (4.63-6.08) x10^6/uL Hgb (13.7-17.5) g/dL Hct (40.1-51.0) % MCV (79.0-92.2) fL MCH (25.7-32.2) pg MCHC (32.3-36.5) g/dL RDW (11.6-14.4) % Plt Count (163-337) x10^3/uL MPV (9.4-12.4) fL Segmented Neutrophils (34.0-67.9) % Lymphocytes (Manual) (21.8-53.1) % Monocytes (Manual) (5.3-12.2) % Eosinophils (Manual) (0.8-7.0) % Platelet Estimate (NORMAL) RBC Morphology Anisocytosis Rouleaux Sodium (135-145) mmol/L Potassium (3.5-5.1) mmol/L Chloride (98-107) mmol/L Carbon Dioxide (22-30) mmol/L Anion Gap (5-15) MEQ/L BUN (9-20) mg/dL Creatinine (0.66-1.25) mg/dL Estimated GFR ML/MIN Glucose (74-106) mg/dL POC Glucometer 155 H (74 to 106) mg/dL Calcium (8.4-10.2) mg/dL Magnesium (1.6-2.3) mg/dL Total Bilirubin (0.2-1.3) mg/dL AST (17-59) U/L ALT (0-50) U/L Alkaline Phosphatase (38-126) U/L Serum Total Protein (6.3-8.2) g/dL Albumin (3.5-5.0) g/dL ABO Group A Rh Factor POSITIVE Antibody Screen NEGATIVE (NEGATIVE) Crossmatch COMPATIBLE (COMPATIBLE) 12/22/24 12/23/24 12/23/24 Range/Units 16:20 04:40 04:40 WBC 7.5 (4.23-9.07) x10^3/uL RBC 2.76 L (4.63-6.08) x10^6/uL Hgb 7.9 L (13.7-17.5) g/dL Hct 24.6 L (40.1-51.0) % MCV 89.1 (79.0-92.2) fL MCH 28.6 (25.7-32.2) pg MCHC 32.1 L (32.3-36.5) g/dL RDW 22.3 H (11.6-14.4) % Plt Count 111 L (163-337) x10^3/uL MPV 10.4 (9.4-12.4) fL Segmented Neutrophils 56 (34.0-67.9) % Lymphocytes (Manual) 30 (21.8-53.1) % Monocytes (Manual) 10 (5.3-12.2) % Eosinophils (Manual) 4 (0.8-7.0) % Platelet Estimate DECREASED (NORMAL) RBC Morphology ABNORMAL Anisocytosis 1+ Rouleaux 3+ Sodium 137 137 (135-145) mmol/L Potassium 3.6 3.4 L (3.5-5.1) mmol/L Chloride 103 102 (98-107) mmol/L Carbon Dioxide 18 L 22 (22-30) mmol/L Anion Gap 19.4 H 16.5 H (5-15) MEQ/L BUN 21 H 21 H (9-20) mg/dL Creatinine 1.23 1.34 H (0.66-1.25) mg/dL Estimated GFR 64.4 58.1 ML/MIN Glucose 140 H 81 (74-106) mg/dL POC Glucometer (74 to 106) mg/dL Calcium 9.0 9.0 (8.4-10.2) mg/dL Magnesium 1.5 L (1.6-2.3) mg/dL Total Bilirubin 0.80 (0.2-1.3) mg/dL AST 49 (17-59) U/L ALT 30 (0-50) U/L Alkaline Phosphatase 50 (38-126) U/L Serum Total Protein 11.9 H (6.3-8.2) g/dL Albumin 3.2 L (3.5-5.0) g/dL ABO Group Rh Factor Antibody Screen (NEGATIVE) Crossmatch (COMPATIBLE) Micro Results-Entire Visit: Microbiology 12/20/24 13:51 Blood Culture - Preliminary Blood 12/20/24 13:20 Blood Culture - Preliminary Blood Accuchecks Date 12/23/24 Date 12/23/24 Date 12/22/24 Date 12/22/24 Time 08:01 Time 21:00 - Procedures and Test Procedures and Tests throughout Hospitalization: Therapy Orders & Screens 12/20/24 20:54 Respiratory Therapy Assessment DAILY Comment: Diagnosis: Pulmonary congestion, elevated BNP 12/20/24 20:56 Respiratory MDI BID Comment: Diagnosis: Pulmonary congestion, elevated BNP 12/20/24 21:00 BiPap/CPAP ROUTINE Comment: home CPAP per home settings Diagnosis: Pulmonary congestion, elevated BNP 12/21/24 13:51 Qualify for Home Oxygen TODAY Comment: Diagnosis: shortness of breath Final Diagnosis/Problem List - Final Discharge Diagnosis/Problem (1) Dyspnea Current Visit: Yes Status: Acute Code(s): R06.00 - DYSPNEA, UNSPECIFIED (2) Anemia Current Visit: Yes Status: Chronic Code(s): D64.9 - ANEMIA, UNSPECIFIED (3) Type 2 diabetes mellitus Current Visit: Yes Status: Chronic (4) COPD (chronic obstructive pulmonary disease) Current Visit: Yes Status: Chronic (5) CHIQUI on CPAP Current Visit: Yes Status: Chronic Code(s): G47.33 - OBSTRUCTIVE SLEEP APNEA (ADULT) (PEDIATRIC) (6) CAD (coronary artery disease) Current Visit: Yes Status: Chronic Code(s): I25.10 - ATHSCL HEART DISEASE OF [place] CORONARY ARTERY W/O ANG PCTRS (7) Atrial fibrillation Current Visit: Yes Status: Chronic Code(s): I48.91 - UNSPECIFIED ATRIAL FIBRILLATION - Discharge Disposition: Home, Self-Care Condition: Stable Prescriptions: New Potassium Chloride Tab* [Klor Con] 20 meq PO DAILY 30 Days #30 tablet Furosemide 20 mg [Lasix 20 mg] 20 mg PO DAILY 30 Days #30 tablet Insulin Glargine [Lantus Insulin] 40 unit SQ BID unit Continue Magnesium Oxide 400 mg [Mag-Ox 400] 250 mg PO DAILY Multivitamin [Men's Multi-Vitamin] 1 each PO DAILY Metoprolol Succinate 25 mg Xl* [Toprol-Xl 25MG Tablets] 25 mg PO BID Fenofibrate,Micronized 145 mg* [Tricor 145 MG] 145 mg PO HS Clopidogrel Bisulfate [PLAVIX Tablet] 75 mg PO DAILY Atorvastatin Calcium [Lipitor] 40 mg PO HS Lisinopril/Hydrochlorothiazide [Lisinopril-Hctz 20-12.5 mg Tab] 1 each PO BID Fexofenadine HCl [Saba] 180 mg PO HS Metformin HCl 500 mg [Glucophage 500 MG] 500 mg PO BID Glipizide 5 mg [Glucotrol 5 MG] 5 mg PO BID Vitamin E 400 Units [Vitamin E 400 UNIT SOFTGEL] 400 unit PO DAILY PANTOPRAZOLE 40 mg Tablet [Protonix 40MG Tablet] 40 mg PO BID Nitroglycerin 0.4 mg Tablet [Nitrostat 0.4 MG Tablet] 0.4 mg SL UD [place]-3 Fatty Acids/Fish Oil [Fish Oil 1,000 mg Capsule] 1 ea PO DAILY ALPRAZolam 1 MG [Xanax 1 mg] 1 mg PO TID PRN PRN PRN Reason: Anxiety Cyclobenzaprine HCl 10 mg [Cyclobenzaprine 10 MG] 10 mg PO HS Fluticasone Propion/Salmeterol [Wixela 250-50 Inhub] 2 puff IH BID Albuterol Sulfate [Proair Hfa] 1 puff IH DAILY PRN PRN PRN Reason: Shortness Of Breath Ergocalciferol (Vitamin D2) [Vitamin D2] 1 tab PO WEEKLY Topiramate [Topamax] 25 mg PO TID PRN PRN Reason: tremors Cyanocobalamin 500 Mcg [Vitamin B-12 500 MCG] 1,000 mcg PO DAILY Zinc 50 mg PO DAILY Ascorbic Acid [Vitamin C] 1,000 mg PO DAILY Cider Vinegar [Apple Cider Vinegar] 0 mg PO DAILY Ubidecarenone [Co Q-10] 200 mg PO DAILY Discontinued Aspirin [Aspirin EC] 81 mg PO HS Insulin Glargine,Hum.rec.anlog [Lantus Solostar] 60 units SQ BID Follow up with: DESTINEE MITCHELL MD [NON-STAFF PHY W/O PRIVILEGES] - ABDOULAYE STEVENS FNP [[employer] PROFESSION STAFF] - 12/31/24 10:00 am (FOR )
[2024-12-23 11:37] VITALS: BP 93/50; PULSE 86; TEMP 98.5; O2SAT 93
[2024-12-23] MEDS: Lasix 40 MG/4 ML IV SCH (12:27)
[2024-12-23 13:53] LABS: Hematocrit 27.8 % (40.1-51.0)
[2024-12-23 14:41] LABS: MAGNESIUM 2.2 mg/dL (1.6-2.3); Potassium 4.3 mmol/L (3.5-5.1)
== END 2024-12-23 15:30 | disposition home or self-care (01) ==
LOC: ED 12:59 → MED SURG 20:07
PROVIDERS: ADMIT Internal Medicine; ATTEND Internal Medicine
DX: R06.00 Dyspnea, unspecified (principal); D64.9 Anemia, unspecified; E11.9 Type 2 diabetes mellitus without complications; J44.9 Chronic obstructive pulmonary disease, unspecified; G47.33 Obstructive sleep apnea (adult) (pediatric); I25.10 Atherosclerotic heart disease of native coronary artery without angina pectoris; I48.91 Unspecified atrial fibrillation; E87.6 Hypokalemia; E83.42 Hypomagnesemia; Z79.899 Other long term (current) drug therapy; Z79.01 Long term (current) use of anticoagulants; Z87.891 Personal history of nicotine dependence
CPT/HCPCS: 36415; 71045; 71260; 74175; 80048; 80053; 81001; 82274; 82728; 82947; 83036; 83540; 83550; 83735; 83880; 84132; 84484; 85014; 85018; 85025; 85027; 85045; 85046; 85379; 86790; 86850; 86900; 86901; 86922; 87040; 93005; 93041; 93306; 94640; 94760; 94762; 99285; P9016; Q3014; 36430; 93268; J1650; J1817; J1940; J7609; A9270-GY; G0328; G0378; J3475

== ENCOUNTER 2025-01-06 13:02 | Emergency (ER) | payer BC ==
--- NOTE | 2025-01-06 13:13 | ERPHSYRPT ---
- History of Present Illness Source: patient Exam Limitations: no limitations Physician History: Patient had a bone marrow biopsy done a few hours ago. He was coming home. It was done at [facility] in [place]. He lives here in town. By the time he got home it started bleeding so they presented here. [facility]. Pressure seem to help with a little bit. He has been here before and he has had to get transfusions and it had to be sent out for some sort of processing. 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 Severity: moderate Allergies/Adverse Reactions: codeine Adverse Reaction (Mild, Verified 01/06/25 13:16) hyperactive/nausea morphine Adverse Reaction (Mild, Verified 01/06/25 13:16) Itching hydromorphone HCl [From Dilaudid] Adverse Reaction (Verified 01/06/25 13:16) ITCH found it caused his nose to itch and was then given with benadryl without problems Home Medications: Atorvastatin Calcium [Lipitor] 40 mg PO HS 04/17/13 [History] Clopidogrel Bisulfate [PLAVIX Tablet] 75 mg PO DAILY 04/17/13 [History] Fenofibrate,Micronized 145 mg* [Tricor 145 MG] 145 mg PO HS 04/17/13 [History] Magnesium Oxide 400 mg [Mag-Ox 400] 250 mg PO DAILY 04/17/13 [History] Metoprolol Succinate 25 mg Xl* [Toprol-Xl 25MG Tablets] 25 mg PO BID 04/17/13 [History] Multivitamin [Men's Multi-Vitamin] 1 each PO DAILY 04/17/13 [History] Fexofenadine HCl [Saba] 180 mg PO HS 12/31/14 [History] Lisinopril/Hydrochlorothiazide [Lisinopril-Hctz 20-12.5 mg Tab] 1 each PO BID 12/31/14 [History] Glipizide 5 mg [Glucotrol 5 MG] 5 mg PO BID 10/12/15 [History] Metformin HCl 500 mg [Glucophage 500 MG] 500 mg PO BID 10/12/15 [History] Vitamin E 400 Units [Vitamin E 400 UNIT SOFTGEL] 400 unit PO DAILY 10/12/15 [History] PANTOPRAZOLE 40 mg Tablet [Protonix 40MG Tablet] 40 mg PO BID 09/27/16 [History] Nitroglycerin 0.4 mg Tablet [Nitrostat 0.4 MG Tablet] 0.4 mg SL UD 10/02/16 [History] ALPRAZolam 1 MG [Xanax 1 mg] 1 mg PO TID PRN PRN 03/20/18 [History] [place]-3 Fatty Acids/Fish Oil [Fish Oil 1,000 mg Capsule] 1 ea PO DAILY 03/20/18 [History] Cyclobenzaprine HCl 10 mg [Cyclobenzaprine 10 MG] 10 mg PO HS 05/08/18 [History] Albuterol Sulfate [Proair Hfa] 1 puff IH DAILY PRN PRN 10/12/20 [History] Ergocalciferol (Vitamin D2) [Vitamin D2] 1 tab PO WEEKLY 10/12/20 [History] Fluticasone Propion/Salmeterol [Wixela 250-50 Inhub] 2 puff IH BID 10/12/20 [History] Ascorbic Acid [Vitamin C] 1,000 mg PO DAILY 08/27/21 [History] Cider Vinegar [Apple Cider Vinegar] 0 mg PO DAILY 08/27/21 [History] Cyanocobalamin 500 Mcg [Vitamin B-12 500 MCG] 1,000 mcg PO DAILY 08/27/21 [History] Topiramate [Topamax] 25 mg PO TID PRN 08/27/21 [History] Ubidecarenone [Co Q-10] 200 mg PO DAILY 08/27/21 [History] Zinc 50 mg PO DAILY 08/27/21 [History] Hx Tetanus, Diphtheria Vaccination/Date Given: No Hx Influenza Vaccination/Date Given: Yes Hx Pneumococcal Vaccination/Date Given: Yes (at least 5 years ago) Travel Risk - Emerging Infectious Disease Are you exhibiting symptoms associated with any current EIDs: Yes Symptoms: Shortness of Breath - Review of Systems Constitutional: No Symptoms Eyes: No Symptoms Skin: No Symptoms Neurological: No Symptoms Psychological: No Symptoms - Past Medical History Pertinent Past Medical History: Yes Neurological History: Peripheral Neuropathy ENT History: Cataracts Cardiac History: Arrhythmia, Congestive Heart Failure, Hypertension, Myocardial Infarction ([place]) Respiratory History: Asthma, CHF, COPD, Pulmonary Embolism, Sleep Apnea Endocrine Medical History: Diabetes Type II, Hypothyroidism Musculoskeletal History: Arthritis, Osteoarthritis GI Medical History: Colitis, Diverticulitis, Hemorrhoids, Pancreatitis History: No Pertinent History Psycho-Social History: Anxiety Male Reproductive Disorders: No Pertinent History Other Medical History: cluster headaches, bursitis, new onset a fib 12/28 - Past Surgical History Past Surgical History: Yes Neuro Surgical History: No Pertinent History Cardiac: Cardiac Stent Respiratory: No Pertinent History Gastrointestinal: No Pertinent History Genitourinary: No Pertinent History Musculoskeletal: Other Male Surgical History: Vasectomy Other Surgical History: multiple back surgeries, nerve ablations Significant Family History: heart disease - Social History Smoking Status: Former smoker (2 pack per day for many years, quit 2 months ago) How long have you smoked: 55 years Exposure to second hand smoke: Yes Drug Use: none - Social Determinants of Health Will the patient participate in the screening: Yes Do you worry about a steady place to live?: No In the past 12 months,have you had to go without utilities?: No Transportation Issues: No Has anyone in your support network made you feel unsafe?: No Have you or anyone in your house had to go w/o enough food: No - Nursing Vital Signs Nursing Vital Signs: Initial Vital Signs Temperature 95.8 F 01/06/25 13:17 Pulse Rate 96 H 01/06/25 13:17 Respiratory Rate 22 01/06/25 13:17 Blood Pressure 109/69 01/06/25 13:17 O2 Sat by Pulse Oximetry 96 01/06/25 13:17 Pain Scale Pain Intensity 0 - Physical Exam General Appearance: no apparent distress Comments: 01/06/25 13:36 Bleeding from the biopsy site. Ordered Tests: Active Orders 24 hr Category Date Time Status BMP Stat Lab 01/06/25 13:13 Ordered CBC W DIFF Stat Lab 01/06/25 13:13 Ordered - Progress Progress: unchanged Progress Note: I had ordered a type and cross as well as a CBC. We could not get a chair because of some factors and the patient's blood we know this because he tried get a transfusion here before. I called the surgery center [facility] where they got the procedure. The patient's doctor was Dr. Momin. They could not get a hold of him. They said to take him to the ER. I was on the phone trying to get a hold of the ER at [facility] the patient's daughter just came and said that they were going to take him to [facility]. 01/06/25 13:53 - Departure Clinical Impression: Postoperative haemorrhage Condition: Stable Critical Care Time: No Referrals: VIVEK DE LA FUENTE MD [Primary Care Provider] - Follow up/PCP as directed
[2025-01-06 13:25] VITALS: BP 109/69; PULSE 96; RESP 22; TEMP 95.8; O2SAT 96
== END 2025-01-06 14:00 | disposition left against medical advice (07) ==
LOC: ED 13:02
DX: M96.830 Postprocedural hemorrhage of a musculoskeletal structure following a musculoskeletal system procedure (principal); I11.0 Hypertensive heart disease with heart failure; I50.9 Heart failure, unspecified; E11.42 Type 2 diabetes mellitus with diabetic polyneuropathy; Z79.02 Long term (current) use of antithrombotics/antiplatelets; Z79.84 Long term (current) use of oral hypoglycemic drugs; Z79.899 Other long term (current) drug therapy
CPT/HCPCS: 99283